=== PATIENT | female | born 1960 | race Caucasian/White ===

== ENCOUNTER 2016-12-15 10:50 | Day surgery (SDC) | payer OTHER ==
[2016-12-13 09:47] VITALS: BMI 35.7
[2016-12-15] MEDS ORDERED: Lactated Ringer's 1,000 ML IV ONE ×2 (14:35→15:21)
[2016-12-15] MEDS ORDERED: Bupivacaine HCl 0.25% PF (10 ml) Inj ONE (14:36)
[2016-12-15] MEDS ORDERED: Lidocaine 1% Inj (20ml) ONE (14:37)
[2016-12-15] MEDS ORDERED: ceFAZolin 1 gm FROZEN Premix 1 GM/50 ML ML IVPB ONE (14:37)
[2016-12-15] MEDS ORDERED: Propofol 10 mg/ml Inj (20 ML) ONE (14:40)
[2016-12-15] MEDS ORDERED: Midazolam 2 MG/2 ML VIAL ONE (14:40)
[2016-12-15] MEDS ORDERED: HYDROmorphone 0.5 mg/0.5 ml ISec IVP PRN (14:51)
[2016-12-15] MEDS ORDERED: Oxycodone/Acetaminophen 5/325 mg Tab PO PRN (15:44)
[2016-12-15 16:50] VITALS: RESP 18; TEMP 98
[2016-12-15 17:50] VITALS: BP 139/72; PULSE 70; O2SAT 100
--- NOTE | 2016-12-16 00:13 | OP ---
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 PROCEDURE: 1. Wide and deep radical resection of 5 cm vascular tumor of the left posterior thigh (30381). 2. Adjacent tissue transfer closure greater than 30 sq cm (06065). SURGEON: Dr. Haddad. TYPE OF ANESTHESIA: Local sedation. ESTIMATED BLOOD LOSS: 40 mL for circulation stable. INDICATIONS FOR SURGERY: This is a 56-year-old female who presents with a painful vascular tumor of the right posterior thigh consistent with the large hemangioma she now undergo wide and deep excision. DESCRIPTION OF PROCEDURE: The patient was taken to the operating room and placed in a prone position and IV sedation was administered and the left posterior thigh was prepped and draped local anesthesia was administered. A generous elliptical incision was made surrounding the fascia and the medial mass. It was carried down to the fascia layer and completely excised, bleeding was controlled using the Bovie. The wound was then irrigated with the saline solution. Generous tissue flaps were raised using a Bovie and wound was widely undermined and an adjacent tissue transverse closure of greater then 30 sq cm was performed using multiple layers of heavy Monocryl, subcuticular Monocryl and skin clips. The wounds were dressed sterilely. The patient tolerated the procedure well and returned to the recovery room in stable condition. Balwinder Haddad MD
== END 2016-12-15 17:56 | disposition home or self-care (01) ==
LOC: C.SDS 10:50
PROVIDERS: ATTEND Surgery
DX: D18.09 Hemangioma of other sites (principal); E11.9 Type 2 diabetes mellitus without complications; I10 Essential (primary) hypertension
CPT/HCPCS: 14301; 27339; 82948; 88305; J2250; J2704; J3010; J7120

== ENCOUNTER 2017-01-04 12:19 | Day surgery (SDC) | payer OTHER ==
[2016-12-13 09:47] VITALS: BMI 35.7
[2017-01-04 13:07] LABS: BASO % 0.6 % (0.0-2.0); EOS # 0.2 K/uL (0.0-0.7); EOS % 3.6 % (0.0-4.0); HEMATOCRIT 42.2 % (34.0-47.0); LYMPH # 1.9 K/uL (1.0-4.3); LYMPH % 29.6 % (20.0-40.0); MEAN CELL VOLUME 79.3 fL (81.0-99.0); MEAN CORPUSCULAR HEMOGLOBIN 25.6 pg (27.0-31.0); MEAN CORPUSCULAR HGB CONC 32.3 g/dL (33.0-37.0); MEAN PLATELET VOLUME 8.1 fL (7.2-11.7); MONO # 0.4 K/uL (0.0-0.8); MONO % 6.8 % (0.0-10.0); NRBC % 0.1 % (0.0-2.0); WHITE BLOOD COUNT 6.3 K/uL (4.8-10.8)
[2017-01-04 13:17] LABS: CHLORIDE 103 mmol/L (98-107); POTASSIUM 3.9 mmol/L (3.6-5.2); SODIUM 146 mmol/L (132-148)
[2017-01-04 13:20] LABS: CARBON DIOXIDE 28 mmol/L (22-30); GFR AFRICAN-AMERICAN > 60
[2017-01-04 13:21] LABS: BLOOD UREA NITROGEN 26 mg/dL (7-17); CALCIUM 9.6 mg/dl (8.6-10.4); GLUCOSE,RANDOM 98 mg/dL (65-105)
[2017-01-04] MEDS ORDERED: Propofol 10 mg/ml Inj (20 ML) ONE (13:25)
[2017-01-04] MEDS ORDERED: Midazolam 2 MG/2 ML VIAL ONE (13:25)
[2017-01-04] MEDS ORDERED: Lactated Ringer's 1,000 ML IV ONE (13:40)
[2017-01-04] MEDS ORDERED: ceFAZolin IV 1 gm in Dextrose 1 GM/50 ML BAG IVPB ONE (13:45)
[2017-01-04] MEDS ORDERED: Oxycodone/Acetaminophen 5/325 mg Tab PO PRN (14:51)
[2017-01-04] MEDS ORDERED: HYDROmorphone 0.5 mg/0.5 ml ISec IVP PRN (15:03)
[2017-01-04] MEDS ORDERED: Lactated Ringer's 500 ML IV ONE (16:00)
[2017-01-04 17:26] VITALS: BP 134/58; PULSE 54; RESP 18; TEMP 97.7; O2SAT 100
--- NOTE | 2017-01-04 20:53 | OP ---
PROCEDURE DATE: 01/04/2017 PREOPERATIVE DIAGNOSES: 1. Fasciotomy to vascular tumor of the left thigh. 2. 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 POSTOPERATIVE DIAGNOSES: 1. Fasciotomy to vascular tumor of the left thigh. 2. 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 PROCEDURE: 1. Wide and deep excision (radical resection) of a vascular tumor of the left thigh greater than 5 cm (67709). 2. Adjacent tissue transfer closure greater than 30 sq cm (57186). 3. Stab phlebectomy of varicose veins of the left thigh greater than 17 incisions ([id number]). SURGEON: Balwinder Haddad MD. TYPE OF ANESTHESIA: General. ESTIMATED BLOOD LOSS: 100 mL. POSTOPERATIVE CONDITION: Stable. INDICATIONS FOR SURGERY: This is a 56-year-old female who presents with a large vascular tumor (hemangioma) measuring greater than 5 cm in the left thigh associated with the phlebitic varicose veins. She will now undergo a wide and deep radical resection of the tumor along with a stab phlebectomy of the phlebitic varicose veins. DESCRIPTION OF PROCEDURE: Patient was taken to the operating room. General anesthesia was administered and the left thigh and leg was prepped and draped. A generous elliptical incision was made surrounding the vascular tumor, which was dissected to the fascial layer and removed. Bleeding was controlled using the Bovie. There was a large tissue defect measuring approximately 40 sq cm and an adjacent tissue transfer closure was performed using multiple layers by firstly widely mobilizing using the Bovie of several layers of tissue and then using multiple layers of heavy Monocryl, subcuticular Monocryl, and glue. Next, the pre-marked phlebitic varicose veins were then excised via the stab phlebectomy, a total of 17 incisions were made. Bleeding was controlled using the Bovie and skin clips. The wounds were all closed with simple closures of 3-0 Monocryl subcuticularly with glue. The wounds were dressed sterilely. An Cesar bandage was wrapped around the left thigh for further compression. The patient tolerated the procedure well, returned to recovery room in stable condition. Balwinder Haddad MD [facility] # [id number]
== END 2017-01-04 18:15 | disposition home or self-care (01) ==
LOC: C.OPSURG 12:19
PROVIDERS: ATTEND Surgery
DX: D18.09 Hemangioma of other sites (principal); I83.892 Varicose veins of left lower extremity with other complications
CPT/HCPCS: 11406; 15572; 36415; 37765; 80048; 85025; 88304; J0690; J2250; J2704; J3010; J7120

== ENCOUNTER 2017-01-17 10:16 | Day surgery (SDC) | payer OTHER ==
[2016-12-13 09:47] VITALS: BMI 35.7
[2017-01-17] MEDS ORDERED: Midazolam 2 MG/2 ML VIAL ONE (12:51)
[2017-01-17] MEDS ORDERED: Propofol 10 mg/ml Inj (20 ML) ONE (12:51)
[2017-01-17] MEDS ORDERED: Lidocaine Hydrochloride 5 ML INJ ONE (13:47)
[2017-01-17] MEDS ORDERED: Bupivacaine HCl 0.25% PF (10 ml) Inj ONE ×4 (14:02→14:49)
[2017-01-17] MEDS ORDERED: ceFAZolin IV 1 gm in Dextrose 0 GM/0 ML BAG IVPB ONE (14:02)
[2017-01-17] MEDS ORDERED: Bupivacaine HCl 0.5% PF (10 ml) Inj ONE (14:03)
[2017-01-17] MEDS ORDERED: Lactated Ringer's 1,000 ML IV ONE (14:04)
[2017-01-17] MEDS: ceFAZolin IV 2 gm in Dextrose 1 GM/50 ML BAG IVPB ONE ×2 (14:16→14:30)
[2017-01-17] MEDS ORDERED: Lidocaine 1% Inj (20ml) ONE (14:25)
[2017-01-17] MEDS ORDERED: Oxycodone/Acetaminophen 5/325 mg Tab PO PRN (15:30)
[2017-01-17] MEDS: HYDROmorphone 0.5 mg/0.5 ml ISec IVP PRN ×2 (15:46→16:09)
[2017-01-17 16:59] VITALS: BP 122/56; PULSE 63; RESP 18; TEMP 97; O2SAT 100
--- NOTE | 2017-01-18 02:27 | OP ---
PROCEDURE DATE: 01/17/2017 PREOPERATIVE DIAGNOSIS: Bilateral pelvic neoplasms. POSTOPERATIVE DIAGNOSIS: Bilateral pelvic neoplasms. PROCEDURES PERFORMED: 1. Wide and deep (radical resection) excision of bilateral pelvic neoplasms measuring 7 cm and 5 cm (69802-57). 2. Adjacent tissue transfer closure of right pelvic wound measuring 32 cm2 ([id number]). 3. Adjacent tissue transfer closure of left pelvic wound measuring 28 cm2 ([id number]). SURGEON: Balwinder Haddad MD TYPE OF ANESTHESIA: General. ESTIMATED BLOOD LOSS: 50 mL. POSTOPERATIVE CONDITION: Stable. INDICATIONS FOR SURGERY: This is a 56-year-old female with bilateral pelvic soft tissue neoplasms who now presents for bilateral wide deep excision. GROSS FINDINGS: There were bilateral pelvic neoplasms noted on the left measuring 7 cm, on the right measuring 5 cm. Both were excised via radical resection, wide and deep excision. Tissue transfer closures were performed bilaterally. DESCRIPTION OF PROCEDURE: The patient was taken to the operating room, general anesthesia was administered and she was placed in the lithotomy position. The stomach was taped cephalad and the pelvic area was prepped and draped. Attention was turned to the right pelvic tumor first. A generous elliptical incision was made surrounding the mass. It was dissected into the pelvic fascia and completely removed. Bleeding was controlled using the Bovie. There was a large tissue defect measuring greater than 32 cm2, so an adjacent tissue transfer closure was mobilized by widely mobilizing and undermining using the Bovie using multiple layers of heavy Monocryl, subcuticular Monocryl and skin clips. On the left, the procedure was repeated utilizing a wide and deep excision of the tumor into the pelvis. A 28 cm2 adjacent tissue transfer closure was performed in the usual fashion. The patient tolerated the procedure well and returned to the recovery room in a stable condition. Balwinder Haddad MD
== END 2017-01-17 17:40 | disposition home or self-care (01) ==
LOC: C.SDS 10:16
PROVIDERS: ATTEND Surgery
DX: D17.79 Benign lipomatous neoplasm of other sites (principal); L98.9 Disorder of the skin and subcutaneous tissue, unspecified
CPT/HCPCS: 11406; 82948; 88307; J0690; J1170; J1885; J2250; J2405; J2704; J3010; J7120

== ENCOUNTER 2017-03-23 12:36 | Day surgery (SDC) | payer MEDICAID ==
[2016-12-13 09:47] VITALS: BMI 35.7
[2017-03-23] MEDS ORDERED: Lactated Ringer's 1,000 ML IV ONE (15:42)
[2017-03-23] MEDS ORDERED: Midazolam 2 MG/2 ML VIAL ONE (15:45)
[2017-03-23] MEDS ORDERED: Propofol 10 mg/ml Inj (20 ML) ONE (15:46)
[2017-03-23] MEDS ORDERED: Rocuronium 10 mg/ml (5 ml) ONE (15:46)
[2017-03-23] MEDS ORDERED: Succinylcholine Chloride 20 mg/ml Syr (5 ml) IV ONE (15:46)
[2017-03-23] MEDS ORDERED: Lidocaine Hydrochloride 5 ML INJ ONE (15:46)
[2017-03-23] MEDS ORDERED: ceFAZolin IV 1 gm in Dextrose 1 GM/50 ML BAG IVPB ONE (16:41)
[2017-03-23] MEDS ORDERED: Oxycodone/Acetaminophen 5/325 mg Tab PO PRN (16:51)
[2017-03-23] MEDS: HYDROmorphone 0.5 mg/0.5 ml ISec IVP PRN ×4 (17:05→17:32)
[2017-03-23 17:37] VITALS: O2SAT 100
[2017-03-23] MEDS ORDERED: HYDROmorphone 0.5 mg/0.5 ml ISec IVP PRN (18:08)
[2017-03-23 18:10] VITALS: BP 109/56; PULSE 73; RESP 20; TEMP 98.5
--- NOTE | 2017-03-25 07:19 | OP ---
PROCEDURE DATE: 03/23/2017 PREOPERATIVE DIAGNOSIS: 5 cm hemangioma of the left leg with varicose veins. POSTOPERATIVE DIAGNOSIS: 5 cm hemangioma of the left leg with varicose veins. PROCEDURES PERFORMED: 1. Wide and deep excision of 5 cm hemangioma of the left leg with adjacent tissue transfer closure. 2. Stab phlebectomy of varicose veins of the left leg. SURGEON: Balwinder Haddad MD ANESTHESIA: General. BLOOD LOSS: 70 mL. POSTOP CONDITION: Stable. INDICATION FOR SURGERY: This is a 56-year-old female with a painful mass of the left leg consistent with hemangioma associated with varicose veins. She now is undergoing wide deep excision of hemangioma along with a stab phlebectomy of varicose veins. DESCRIPTION OF THE PROCEDURE: The patient was taken to the operating room, general anesthesia was administered. She was placed in the prone position and the left leg was prepped and draped. A generous elliptical incision was made surrounding the mass. It was dissected into the fascial layer and removed. Bleeding was controlled using the Bovie. A larger blood vessel was repaired. The wound was irrigated with saline. Generous tissue flaps were raised using the Bovie and adjacent tissue transfer closure was performed using multiple layers of Monocryl, subcuticular Monocryl and glue. Stab phlebectomy was then performed of the remaining varicose veins, totaling 10 incisions. Simple closures were performed with subcuticular Monocryl. The patient tolerated the procedure well and returned to the recovery room in stable condition. Balwinder Haddad MD
== END 2017-03-23 18:45 | disposition home or self-care (01) ==
LOC: C.SDS 12:36
PROVIDERS: ATTEND Surgery
DX: I83.10 Varicose veins of unspecified lower extremity with inflammation (principal)
CPT/HCPCS: 37722; 82948; 88304; J0690; J1170; J2250; J2405; J2704; J3010; J7120

== ENCOUNTER 2017-04-18 11:39 | Day surgery (SDC) | payer MEDICAID ==
[2016-12-13 09:47] VITALS: BMI 35.7
[2017-04-18] MEDS ORDERED: ceFAZolin IV 2 gm in Dextrose 2 GM/50 ML BAG IVPB ONE (14:06)
[2017-04-18] MEDS ORDERED: Lactated Ringer's 1,000 ML IV ONE ×2 (14:15→15:20)
[2017-04-18] MEDS ORDERED: Propofol 10 mg/ml Inj (20 ML) ONE (14:21)
[2017-04-18] MEDS ORDERED: Midazolam 2 MG/2 ML VIAL ONE (14:21)
[2017-04-18] MEDS ORDERED: Phenylephrine 10 mg/ml Inj ONE (15:01)
[2017-04-18] MEDS ORDERED: Lactated Ringer's 1,000 ML IV SCH (16:15)
[2017-04-18] MEDS: HYDROmorphone 0.5 mg/0.5 ml ISec IVP PRN ×2 (16:15→16:42)
[2017-04-18 16:28] VITALS: O2SAT 100
[2017-04-18] MEDS ORDERED: Oxycodone/Acetaminophen 5/325 mg Tab PO PRN (16:28)
[2017-04-18 17:17] VITALS: BP 120/58; PULSE 78; RESP 16; TEMP 97.9
--- NOTE | 2017-04-19 07:50 | OP ---
PROCEDURE DATE: 04/18/2017 PREOPERATIVE DIAGNOSES: Bilateral lower extremity hemangiomas with varicose veins of the left leg. POSTOPERATIVE DIAGNOSES: Bilateral lower extremity hemangiomas with varicose veins of the left leg. PROCEDURE PERFORMED: 1. Wide and deep excisions, bilateral hemangiomas of the legs. 2. Stab phlebectomy of left leg varicose veins, greater than 20 incisions. SURGEON: Balwinder Haddad MD. ANESTHESIA: General. ESTIMATED BLOOD LOSS: 30 mL. HISTORY OF PRESENT ILLNESS: This is a 56-year-old female, status post multiple lower extremity procedures for varicose veins. She presents for her final stage procedure, which includes excision of 2 large hemangiomas of the lower extremities and varicose veins of the left leg. DESCRIPTION OF PROCEDURE: The patient was taken to the operative room. General anesthesia was administered. Both legs were prepped and draped. Attention was first turned to the right leg were a generous elliptical incision was made over a mass in the ankle consistent with hemangioma. It was dissected into the fascia and removed. Bleeding was controlled using the Bovie. A larger blood vessel was repaired. The wound was irrigated with saline. Generous tissue flaps were raised using the Bovie and an adjacent tissue transfer closure was performed using multiple layers of Monocryl, subcuticular Monocryl and glue. The above was repeated on hemangioma of the left leg. The remaining varicose veins of the left leg which had been marked preoperatively were excised via stab phlebectomy. Simple closures with subcuticular Monocryl and glue were performed. The wounds were irrigated and dressed sterilely. The patient tolerated the procedure well. Returned to recovery room in stable condition. Balwinder Haddad MD
== END 2017-04-18 17:56 | disposition home or self-care (01) ==
LOC: C.SDS 11:39
PROVIDERS: ATTEND Surgery
DX: D21.22 Benign neoplasm of connective and other soft tissue of left lower limb, including hip (principal); D21.21 Benign neoplasm of connective and other soft tissue of right lower limb, including hip; I83.893 Varicose veins of bilateral lower extremities with other complications
CPT/HCPCS: 27615; 37766; 82948; 88304; J0690; J1170; J2250; J2370; J2704; J3010; J7120

== ENCOUNTER 2017-05-06 12:27 | Inpatient (IN) | payer MEDICAID ==
[2017-05-06 12:27] VITALS: BMI 35.7
--- NOTE | 2017-05-06 13:42 | C.PDOC ---
History Of Present Illness 56 year old female presents to the emergency department with a non-healing right lower leg wound after she was sent by Dr. Balwinder Haddad MD. Patient underwent extensive lower extremity varicose surgery recently which is not healing well. Denies any further medical complaints. Time Seen by Provider: 05/06/17 13:06 Chief Complaint (Nursing): Abnormal Skin Integrity History Per: Patient History/Exam Limitations: no limitations Past Medical History Reviewed: Historical Data, Nursing Documentation, Vital Signs Vital Signs: Last Vital Signs Temp 97.9 F 05/09/17 16:15 Pulse 68 05/09/17 16:15 Resp 20 05/09/17 16:15 BP 166/88 H 05/09/17 16:15 Pulse Ox 98 05/10/17 00:32 - Medical History PMH: HTN, Hypercholesterolemia Surgical History: Coronary Stent (X1), Endoscopy Other Surgeries: Varicose surgery Family History: States: No Known Family Hx - Social History Hx Alcohol Use: No Hx Substance Use: No - Immunization History Hx Tetanus Toxoid Vaccination: No Hx Influenza Vaccination: No Hx Pneumococcal Vaccination: No Review Of Systems Except As Marked, All Systems Reviewed And Found Negative. (As per HPI, otherwise negative) Musculoskeletal: Positive for: Leg Pain (Right lower leg wound) Physical Exam - Physical Exam Appears: Well, Non-toxic Skin: Normal Color, Warm, Dry Head: Atraumatic, Normacephalic Cardiovascular: Rhythm Regular, No Murmur Respiratory: Normal Breath Sounds, No Decreased Breath Sounds, No Accessory Muscle Use, No Wheezing Gastrointestinal/Abdominal: Normal Exam, Soft, No Tenderness Extremity: Normal ROM (3 cm surgical wound ehiscence over the right lower leg, anterior tibia with surrounding erythema and a few black areas with questionable eschar. ), No Other (No crepitation or gas noted) Neurological/Psych: Oriented x3 ED Course And Treatment - Laboratory Results Result Diagrams: 05/06/17 14:11 05/09/17 07:15 Lab Interpretation: Normal (ua neg, trop neg.) ECG: Interpreted By Me ECG Rhythm: L BBB ECG Interpretation: Normal, No Changes From Prior, Abnormal Rate From EC O2 Sat by Pulse Oximetry: 98 (RA) Pulse Ox Interpretation: Normal - Radiology CXR: Interpreted by Me CXR Interpretation: Yes: No Acute Disease - Other Rad R tib/fib X-Ray: Interpreted by Me (no gas/FB) Progress Note: vanco, toradol IV Reevaluation Time: 14:58 Reassessment Condition: Improved Medical Decision Making Medical Decision Making: distal R lower leg surgical wound Vanco empirically per Dr. Haddad wound without FB/gas/periosteal lifting NPO for elective debridement, wound NOT cultured in ED for fear of growing many unrelated bacteria. Time: 1340 --Chest x-ray IMPRESSION: No active pulmonary disease. Time: 1436 --Tibia/Fibula x-ray IMPRESSION: Findings consistent with cellulitis medial and posterior greater than lateral. No definitive evidence of subcutaneous emphysema. No definitive radiographic evidence of cortical destructive changes at this time however early osteomyelitis cannot be completely excluded and if there is clinical concern for up early osteomyelitis recommend followup MRI. Findings consistent with prior venous harvest procedure although clinical correlation with surgical history recommended. . Time: 1458 --Patient admitted under for surgical wound infection. Disposition Doctor Will See Patient In The: Hospital Counseled Patient/Family Regarding: Studies Performed, Diagnosis - Disposition Disposition: HOSPITALIZED Disposition Time: 14:58 Condition: GOOD - Clinical Impression Clinical Impression: Surgical wound infection - Scribe Statement Nimo Jhonson All medical record entries made by the Scribe were at my direction and personally dictated by me. I have reviewed the chart and agree that the record accurately reflects my personal performance of the history, physical exam, medical decision making, and the department course for this patient. I have also personally directed, reviewed, and agree with the discharge instructions and disposition.
--- NOTE | 2017-05-06 13:52 | RAD ---
PROCEDURE: CHEST RADIOGRAPH, 1 VIEW HISTORY: SOB COMPARISON: None available. FINDINGS: LUNGS: The lungs are well inflated and clear. PLEURA: No pneumothorax or pleural fluid seen. CARDIOVASCULAR: Normal. OSSEOUS STRUCTURES: No significant abnormalities. VISUALIZED UPPER ABDOMEN: Normal. OTHER FINDINGS: None. IMPRESSION: No active pulmonary disease.
[2017-05-06] MEDS: Vancomycin 1 gm/NS 200 ml 1 GM/200 ML BAG IVPB STA ×2 (14:14→14:37)
[2017-05-06 14:21] LABS: BASO % 0.6 % (0.0-2.0); EOS # 0.2 K/uL (0.0-0.7); EOS % 3.1 % (0.0-4.0); HEMOGLOBIN 13.5 g/dL (11.0-16.0); LYMPH # 1.9 K/uL (1.0-4.3); LYMPH % 28.8 % (20.0-40.0); MEAN CELL VOLUME 79.9 fL (81.0-99.0); MEAN CORPUSCULAR HEMOGLOBIN 26.8 pg (27.0-31.0); MEAN CORPUSCULAR HGB CONC 33.6 g/dL (33.0-37.0); MEAN PLATELET VOLUME 8.2 fL (7.2-11.7); MONO # 0.5 K/uL (0.0-0.8); MONO % 7.1 % (0.0-10.0); NEUT % 60.4 % (50.0-75.0); RBC 5.03 Mil/uL (3.80-5.20); RED CELL DISTRIBUTION WIDTH 14.1 % (11.5-14.5); WHITE BLOOD COUNT 6.7 K/uL (4.8-10.8)
[2017-05-06 14:24] LABS: PROTHROMBIN TIME 11.3 SECONDS (9.7-12.2)
[2017-05-06 14:31] LABS: SQUAMOUS EPITHIAL 4 /hpf (0-5); URINE BACTERIA RARE (<OCC); URINE BILIRUBIN NEGATIVE (NEGATIVE); URINE BLOOD NEGATIVE (NEGATIVE); URINE CLARITY Clear (Clear); URINE COLOR Straw (YELLOW); URINE GLUCOSE (UA) 2+ mg/dL (Normal); URINE LEUKOCYTE ESTERASE NEG Leu/uL (Negative); URINE NITRATE NEGATIVE (NEGATIVE); URINE PROTEIN NEGATIVE (NEGATIVE); URINE UROBILINOGEN NORMAL mg/dL (0.2-1.0)
--- NOTE | 2017-05-06 14:38 | RAD ---
PROCEDURE: Right tibia/ fibula dated 05/06/2017 HISTORY: Right anterior tibial wound ; questionable osteomyelitis COMPARISON: No prior study available for comparison TECHNIQUE: Frontal and lateral views obtained. FINDINGS: BONES: Current study reveals no evidence of acute displaced fracture nor dislocation. The osseous structures appear intact. There are no obvious cortical destructive changes seen on this radiograph however the possibility of a mild early osteomyelitis cannot be completely excluded. There are infiltration changes seen within the subcutaneous tissues of the lower aspect of the left lower extremity medially of more significant than laterally consistent with cellulitis. No evidence of subcutaneous emphysema If there is any concern for early osteomyelitis, consider followup MRI. Note also made of metallic vascular clips within the medial soft tissues distally and proximally consistent with prior venous harvest procedure however clinical correlation with surgical history recommended. JOINT SPACES: Mild degenerative changes of the left knee and tibiotalar articulations. OTHER FINDINGS: None. IMPRESSION: Findings consistent with cellulitis medial and posterior greater than lateral. No definitive evidence of subcutaneous emphysema. No definitive radiographic evidence of cortical destructive changes at this time however early osteomyelitis cannot be completely excluded and if there is clinical concern for up early osteomyelitis recommend followup MRI. Findings consistent with prior venous harvest procedure although clinical correlation with surgical history recommended. .
[2017-05-06 14:40] LABS: ALBUMIN 4.5 g/dL (3.5-5.0); ALT/SGPT 31 U/L (9-52); AST/SGOT 27 U/L (14-36); BLOOD UREA NITROGEN 18 mg/dL (7-17); CALCIUM 9.2 mg/dl (8.6-10.4); GFR AFRICAN-AMERICAN > 60; GFR NON-AFRICAN AMERICAN > 60
[2017-05-06 14:43] LABS: ALB/GLOB RATIO 1.2 (1.0-2.1)
[2017-05-06] MEDS ORDERED: Lactated Ringer's 1,000 ML IV ONE ×3 (16:15)
[2017-05-06] MEDS ORDERED: Propofol 10 mg/ml Inj (20 ML) ONE (16:28)
[2017-05-06] MEDS ORDERED: Midazolam 2 MG/2 ML VIAL ONE (16:28)
[2017-05-06] MEDS ORDERED: Lidocaine 1% Inj (20ml) ONE (17:55)
[2017-05-06] MEDS ORDERED: Bupivacaine HCl 0.25% PF (10 ml) Inj ONE (17:55)
[2017-05-06] MEDS: Lactated Ringer's 1,000 ML IV SCH (18:19)
--- NOTE | 2017-05-06 18:43 | CP.PCM.CON ---
History of Present Illness - History of Present Illness History of Present Illness: admitted with infected stasis ulcer right leg 'went to OR for debridement IV antibiotics ordered - Medical History PMH: HTN, Hypercholesterolemia Surgical History: Coronary Stent (X1), Endoscopy Review of Systems - Constitutional Constitutional: As Per HPI - EENT Eyes: absent: As Per HPI, Blind Spots, Blurred Vision, Change in Vision, Decreased Night Vision, Diplopia, Discharge, Dry Eye, Exophthalmos, Floaters, Irritation, Itchy Eyes, Loss of Peripheral Vision, Pain, Photophobia, Requires Corrective Lenses, Sees Flashes, Spots in Vision, Tunnel Vision, Other Visual Disturbances, Loss of Vision, Other Ears: absent: As Per HPI, Decreased Hearing, Ear Discharge, Ear Pain, Tinnitus, Abnormal Hearing, Disequilibrium, Dizziness, Other Nose/Mouth/Throat: absent: As Per HPI, Epistaxis, Nasal Congestion, Nasal Discharge, Nasal Obstruction, Nasal Trauma, Nose Pain, Post Nasal Drip, Sinus Pain, Sinus Pressure, Bleeding Gums, Change in Voice, Dental Pain, Dry Mouth, Dysphagia, Halitosis, Hoarsness, Lip Swelling, Mouth Lesions, Mouth Pain, Odynophagia, Sore Throat, Throat Swelling, Tongue Swelling, Facial Pain, Neck Pain, Neck Mass, Other - Breasts Breasts: absent: As Per HPI, Change in Shape, Mass, Pain, Nipple Discharge, Nipple Inversion, Skin Changes, Swelling, Other - Cardiovascular Cardiovascular: absent: As Per HPI, Acrocyanosis, Chest Pain, Chest Pain at Rest , Chest Pain with Activity, Claudication, Diaphoresis, Dyspnea, Dyspnea on Exertion, Edema, Irregular Heart Rhythm, Pain Radiating to Arm/Neck/Jaw, Leg Edema, Leg Ulcers, Lightheadedness, Orthopnea, Palpitations, Paroxysmal Nocturnal Dyspnea, Pedal Edema, Radiating Pain, Rapid Heart Rate, Slow Heart Rate, Syncope, Other - Respiratory Respiratory: absent: As Per HPI, Cough, Dyspnea, Hemoptysis, Dyspnea on Exertion , Wheezing, Snoring, Stridor, Pain on Inspiration, Chest Congestion, Excessive Mucous Production, Change in Mucous Color, Pain with Coughing, Other - Gastrointestinal Gastrointestinal: absent: As Per HPI, Abdominal Pain, Belching, Bloating, Change in Bowel Habits, Change in Stool Character, Coffee Ground Emesis, Constipation, Cramping, Diarrhea, Dyspepsia, Dysphagia, Early Satiety, Excessive Flatus, Fecal Incontinence, Heartburn, Hematemesis, Hematochezia, Loose Stools, Melena, Nausea, Odynophagia, Temesmus, Vomiting, Other - Genitourinary Genitourinary: absent: As Per HPI, Change in Urinary Stream, Difficulty Urinating, Dysuria, Flank Pain, Hematuria, Pyuria, Nocturia, Urinary Incontinence, Urinary Frequency, Urinary Hesitance, Urinary Urgency, Voiding Freq/Small Amts, Freq UTI, Hx Renal/Bladder Calculi, Hx /Renal Surgery, Bladder Distension, Other - Reproductive: Female Reproductive:Female: absent: As Per HPI, Amenorrhea, Amenorrhea/ Control, Currently Menstual, Cycle <21 Days, Cycle >35 Days, Cycle Variable, Menses 1-7 Days, Menses >/= 8 Days, Menses Variable, Cycle > 4 Weeks Between, No Menses for 6 Months, Heavy Menses, Light Menses, Normal Menses, Spotting Between Cycles , S/P Hysterectomy, Menopausal, Post Menopausal, Premenarche, Abnormal Vaginal Bleeding, Dysmenorrhea, Dyspareunia, Genital Lesions, Genital Pruritis, Pelvic Pain, Prolapse Symptoms, Sexual Dysfunction, Vaginal Discharge, Vaginal Dryness , Vaginal Odor, Vaginal Pruritis, Other - Menstruation Menstruation: absent: As Per HPI, Amenorrhea, Amenorrhea/ Control, Currently Menstual, Cycle <21 Days, Cycle >35 Days, Cycle Variable, Menses 1-7 Days, Menses >/= 8 Days, Menses Variable, Cycle > 4 Weeks Between, No Menses for 6 Months, Heavy Menses, Light Menses, Normal Menses, Spotting Between Cycles , S/P Hysterectomy, Menopausal, Post Menopausal, Premenarche, Abnormal Vaginal Bleeding, Dysmenorrhea, Other - Musculoskeletal Musculoskeletal: As Per HPI - Integumentary Integumentary: As Per HPI, Skin Pain, Wounds - Neurological Neurological: absent: As Per HPI, Abnormal Gait, Abnormal Hearing, Abnormal Movements, Abnormal Speech, Behavioral Changes, Burning Sensations, Confusion, Convulsions, Disequilibrium, Dizziness, Numbness, Focal Weakness, Frequent Falls , Headaches, Lack of Coordination, Loss of Vision, Memory Loss, Paresthesias, Radicular Pain, Restless Legs, Sensory Deficit, Syncope, Tingling, Tremor, Vertigo, Weakness, Other Visual Disturbances, Other - Psychiatric Psychiatric: absent: As Per HPI, Abnormal Sleep Pattern, Anhedonia, Anxiety, Auditory Hallucinations, Behavioral Changes, Change in Appetite, Change in Libido, Confusion, Depression, Difficulty Concentrating, Hallucinations, Homicidal Ideation, Hopelessness, Irritability, Memory Loss, Mood Swings, Panic Attacks, Paranoia, Suicidal Ideation, Visual Hallucinations, Tactile Hallucinations, Other - Endocrine Endocrine: absent: As Per HPI, Change in Body Appearance, Change in Libido, Cold Intolorance, Deepening of Voice, Excessive Sweating, Fatigue, Flushing, Heat Intolorance, Increase in Ring/Shoe/Hat Size, Palpitations, Polydipsia, Polyphagia, Polyuria, Other - Hematologic/Lymphatic Hematologic: absent: As Per HPI, Easy Bleeding, Easy Bruising, Lymphadenopathy, Other Past Patient History - Past Medical History & Family History Past Medical History?: Yes - Past Social History Smoking Status: Never Smoked - CARDIAC Hx Hypercholesterolemia: Yes Hx Hypertension: Yes - ENDOCRINE/METABOLIC Hx Endocrine Disorders: Yes Hx Diabetes Mellitus Type 2: Yes - INTEGUMENTARY Hx Dermatological Problems: Yes Other/Comment: varicose veins - MUSCULOSKELETAL/RHEUMATOLOGICAL Hx Musculoskeletal Disorders: Yes Other/Comment: varicose veins - GASTROINTESTINAL Hx Gastrointestinal Disorders: No - GENITOURINARY/GYNECOLOGICAL Hx Genitourinary Disorders: No - PSYCHIATRIC Hx Substance Use: No - SURGICAL HISTORY Hx Coronary Stent: Yes (X1) - ANESTHESIA Hx Anesthesia Reactions: (Nausea and vomiting) Meds Allergies/Adverse Reactions: Allergies Allergy/AdvReac Type Severity Reaction Status Date / Time No Known Allergies Allergy Verified 05/06/17 13:04 - Medications Medications: Current Medications Aspirin (Ecotrin) 81 mg PO DAILY [facility] Docusate Sodium (Colace) 100 mg PO BID [facility] Enoxaparin Sodium (Lovenox) 30 mg SC 1000,2200 [facility] Glipizide (Glucotrol Xl) 5 mg PO DAILY [facility] Hydrochlorothiazide (Microzide) 12.5 mg PO DAILY [facility] Hydromorphone HCl (Dilaudid) 0.5 mg IVP Q10M PRN PRN Reason: Pain, moderate (4-7) Stop: 05/06/17 19:01 Last Admin: 05/06/17 17:26 Dose: 0.5 mg Lactated Ringer's (Lactated Ringer's) 1,000 mls @ 125 mls/hr IV .Q8H [facility] Last Admin: 05/06/17 18:19 Dose: 125 mls/hr Insulin Aspart (Novolog) 0 unit SC ACHS [facility] PRN Reason: Protocol Losartan Potassium (Cozaar) 100 mg PO DAILY [facility] Ondansetron HCl (Zofran Inj) 4 mg IVP ONCE PRN PRN Reason: Nausea/Vomiting Stop: 05/06/17 19:01 Ondansetron HCl (Zofran Inj) 4 mg IVP Q6 PRN PRN Reason: Nausea/Vomiting Oxycodone/Acetaminophen (Percocet 5/325 Mg Tab) 1 tab PO Q4H PRN PRN Reason: pain 5-10 Stop: 05/09/17 16:57 Pantoprazole Sodium (Protonix Inj) 40 mg IVP DAILY [facility] Rosuvastatin Calcium (Crestor) 5 mg PO HS [facility] Physical Exam - Constitutional Appears: Non-toxic, Chronically Ill - Head Exam Head Exam: NORMOCEPHALIC - Eye Exam Eye Exam: PERRL. absent: Scleral icterus - ENT Exam ENT Exam: Mucous Membranes Dry - Neck Exam Neck exam: Negative for: Lymphadenopathy - Respiratory Exam Respiratory Exam: Decreased Breath Sounds - Cardiovascular Exam Cardiovascular Exam: REGULAR RHYTHM - GI/Abdominal Exam GI & Abdominal Exam: Diminished Bowel Sounds, Soft. absent: Tenderness - Rectal Exam Rectal Exam: Deferred - Exam Exam: NORMAL INSPECTION - Extremities Exam Extremities exam: Positive for: tenderness, pedal pulses present. Negative for : calf tenderness, normal inspection, pedal edema Additional comments: right leg ulcer wrapped s/p OR - Back Exam Back exam: absent: CVA tenderness (L), CVA tenderness (R) - Neurological Exam Neurological exam: Alert, CN II-XII Intact, Oriented x3, Reflexes Normal - Psychiatric Exam Psychiatric exam: Normal Mood - Skin Skin Exam: Dry Results - Vital Signs Recent Vital Signs: Last Vital Signs Temp 97.4 F L 05/06/17 16:55 Pulse 60 05/06/17 17:55 Resp 11 L 05/06/17 17:55 BP 121/47 L 05/06/17 17:55 Pulse Ox 100 05/06/17 17:55 - Labs Result Diagrams: 05/06/17 14:11 05/06/17 14:11 Labs: Laboratory Results - last 24 hr 05/06/17 05/06/1718 14:11 14:11 14:11 WBC 6.7 RBC 5.03 Hgb 13.5 Hct 40.2 MCV 79.9 L MCH 26.8 L MCHC 33.6 RDW 14.1 Plt Count 261 MPV 8.2 Neut % (Auto) 60.4 Lymph % (Auto) 28.8 [place] % (Auto) 7.1 Eos % (Auto) 3.1 Baso % (Auto) 0.6 Neut # 4.0 Lymph # 1.9 [place] # 0.5 Eos # 0.2 Baso # 0.0 PT 11.3 INR 1.0 APTT 35 H Sodium Potassium Chloride Carbon Dioxide Anion Gap BUN Creatinine Est GFR ( Amer) Est GFR (Non-Af Amer) Random Glucose Calcium Total Bilirubin AST ALT Alkaline Phosphatase Troponin I Total Protein Albumin Globulin Albumin/Globulin Ratio Urine Color Straw Urine Clarity Clear Urine pH 5.0 Ur Specific [place] 1.012 Urine Protein Negative Urine Glucose (UA) 2+ H Urine Ketones Negative Urine Blood Negative Urine Nitrate Negative Urine Bilirubin Negative Urine Urobilinogen Normal Ur Leukocyte Esterase Neg Urine WBC (Auto) 2 Urine RBC (Auto) < 1 Ur Squamous Epith Cells 4 Urine Bacteria Rare 05/06/17 14:11 WBC RBC Hgb Hct MCV MCH MCHC RDW Plt Count MPV Neut % (Auto) Lymph % (Auto) [place] % (Auto) Eos % (Auto) Baso % (Auto) Neut # Lymph # [place] # Eos # Baso # PT INR APTT Sodium 139 Potassium 3.8 Chloride 97 L Carbon Dioxide 31 H Anion Gap 15 BUN 18 H Creatinine 0.8 Est GFR ( Amer) > 60 Est GFR (Non-Af Amer) > 60 Random Glucose 112 H Calcium 9.2 Total Bilirubin 0.7 AST 27 ALT 31 Alkaline Phosphatase 117 Troponin I < 0.0120 Total Protein 8.4 H Albumin 4.5 Globulin 3.9 Albumin/Globulin Ratio 1.2 Urine Color Urine Clarity Urine pH Ur Specific [place] Urine Protein Urine Glucose (UA) Urine Ketones Urine Blood Urine Nitrate Urine Bilirubin Urine Urobilinogen Ur Leukocyte Esterase Urine WBC (Auto) Urine RBC (Auto) Ur Squamous Epith Cells Urine Bacteria Assessment & Plan (1) Surgical wound infection Status: Acute - Assessment and Plan (Free Text) Assessment: went to or for debridement IV antibitoics staretd empirically to dicuss with Dr Alvarenga
[2017-05-06] MEDS ORDERED: Piperacillin/Tazobact 3.375 GM in Sodium Chloride 100 ML IVPB SCH (18:45)
[2017-05-06] MEDS: Piperacill/Tazo 3.375gm in Dex 3.375 GM/50 ML BAG IVPB SCH (20:27)
[2017-05-06] MEDS: (Novolog) Insulin Aspart, Recombinant 100 u/ml 10 ml vial SC SCH (21:56)
[2017-05-06] MEDS: Enoxaparin 30 mg Syringe SC SCH (21:59)
[2017-05-06] MEDS: Oxycodone/Acetaminophen 5/325 mg Tab PO PRN (22:02)
--- NOTE | 2017-05-06 22:50 | CP.PCM.HP ---
History of Present Illness - History of Present Illness History of Present Illness: admitted with infected stasis ulcer right leg 'went to OR for debridement IV antibiotics ordered Present on Admission - Present on Admission Any Indicators Present on Admission: Yes Past Patient History - Past Medical History & Family History Past Medical History?: Yes - Past Social History Smoking Status: Never Smoked - CARDIAC Hx Cardiac Disorders: Yes Hx Hypercholesterolemia: Yes Hx Hypertension: Yes - PULMONARY Hx Respiratory Disorders: No - NEUROLOGICAL Hx Neurological Disorder: No - HEENT Hx HEENT Problems: No - RENAL Hx Chronic Kidney Disease: No - ENDOCRINE/METABOLIC Hx Endocrine Disorders: Yes Hx Diabetes Mellitus Type 2: Yes - HEMATOLOGICAL/ONCOLOGICAL Hx Blood Disorders: No - INTEGUMENTARY Hx Dermatological Problems: Yes Other/Comment: varicose veins - MUSCULOSKELETAL/RHEUMATOLOGICAL Hx Musculoskeletal Disorders: Yes Hx Falls: No Other/Comment: varicose veins - GASTROINTESTINAL Hx Gastrointestinal Disorders: No - GENITOURINARY/GYNECOLOGICAL Hx Genitourinary Disorders: No - PSYCHIATRIC Hx Psychophysiologic Disorder: No Hx Substance Use: No - SURGICAL HISTORY Hx Surgeries: Yes Hx Coronary Stent: Yes (X1) Other/Comment: umbilical hernia repair 2006 - ANESTHESIA Hx Anesthesia: Yes Hx Anesthesia Reactions: (Nausea and vomiting) Hx Malignant Hyperthermia: No Meds Allergies/Adverse Reactions: Allergies Allergy/AdvReac Type Severity Reaction Status Date / Time No Known Allergies Allergy Verified 05/06/17 13:04 Results - Vital Signs Recent Vital Signs: Last Vital Signs Temp 97.7 F 05/06/17 18:20 Pulse 66 05/06/17 18:20 Resp 18 05/06/17 21:06 BP 135/76 05/06/17 18:20 Pulse Ox 98 05/06/17 20:20 - Labs Result Diagrams: 05/10/17 11:08 05/10/17 11:08 Labs: Laboratory Results - last 24 hr 05/06/17 05/06/17 05/06/17 14:11 14:11 14:11 WBC 6.7 RBC 5.03 Hgb 13.5 Hct 40.2 MCV 79.9 L MCH 26.8 L MCHC 33.6 RDW 14.1 Plt Count 261 MPV 8.2 Neut % (Auto) 60.4 Lymph % (Auto) 28.8 [place] % (Auto) 7.1 Eos % (Auto) 3.1 Baso % (Auto) 0.6 Neut # 4.0 Lymph # 1.9 [place] # 0.5 Eos # 0.2 Baso # 0.0 PT 11.3 INR 1.0 APTT 35 H Sodium Potassium Chloride Carbon Dioxide Anion Gap BUN Creatinine Est GFR ( Amer) Est GFR (Non-Af Amer) POC Glucose (mg/dL) Random Glucose Calcium Total Bilirubin AST ALT Alkaline Phosphatase Troponin I Total Protein Albumin Globulin Albumin/Globulin Ratio Urine Color Straw Urine Clarity Clear Urine pH 5.0 Ur Specific [place] 1.012 Urine Protein Negative Urine Glucose (UA) 2+ H Urine Ketones Negative Urine Blood Negative Urine Nitrate Negative Urine Bilirubin Negative Urine Urobilinogen Normal Ur Leukocyte Esterase Neg Urine WBC (Auto) 2 Urine RBC (Auto) < 1 Ur Squamous Epith Cells 4 Urine Bacteria Rare 05/06/17 05/06/17 14:11 21:14 WBC RBC Hgb Hct MCV MCH MCHC RDW Plt Count MPV Neut % (Auto) Lymph % (Auto) [place] % (Auto) Eos % (Auto) Baso % (Auto) Neut # Lymph # [place] # Eos # Baso # PT INR APTT Sodium 139 Potassium 3.8 Chloride 97 L Carbon Dioxide 31 H Anion Gap 15 BUN 18 H Creatinine 0.8 Est GFR ( Amer) > 60 Est GFR (Non-Af Amer) > 60 POC Glucose (mg/dL) 155 H Random Glucose 112 H Calcium 9.2 Total Bilirubin 0.7 AST 27 ALT 31 Alkaline Phosphatase 117 Troponin I < 0.0120 Total Protein 8.4 H Albumin 4.5 Globulin 3.9 Albumin/Globulin Ratio 1.2 Urine Color Urine Clarity Urine pH Ur Specific [place] Urine Protein Urine Glucose (UA) Urine Ketones Urine Blood Urine Nitrate Urine Bilirubin Urine Urobilinogen Ur Leukocyte Esterase Urine WBC (Auto) Urine RBC (Auto) Ur Squamous Epith Cells Urine Bacteria
[2017-05-07] MEDS: Lactated Ringer's 1,000 ML IV SCH ×2 (02:00→16:47)
[2017-05-07] MEDS: Vancomycin 1 gm/NS 200 ml 1 GM/200 ML BAG IVPB SCH ×2 (03:24→14:47)
[2017-05-07] MEDS: Oxycodone/Acetaminophen 5/325 mg Tab PO PRN ×2 (03:24→20:57)
[2017-05-07] MEDS: Piperacill/Tazo 3.375gm in Dex 3.375 GM/50 ML BAG IVPB SCH ×3 (04:17→19:43)
[2017-05-07] MEDS: (Novolog) Insulin Aspart, Recombinant 100 u/ml 10 ml vial SC SCH ×4 (07:43→21:57)
[2017-05-07] MEDS: GlipiZIDE 5 mg SR Tab PO SCH (10:09)
[2017-05-07] MEDS: Enoxaparin 30 mg Syringe SC SCH ×2 (11:27→22:00)
--- NOTE | 2017-05-07 22:05 | CP.PCM.PN ---
Subjective - Date & Time of Evaluation Date of Evaluation: 05/07/17 Time of Evaluation: 18:30 - Subjective Subjective: Pt seen and evalauted, pt has no shortness of breath, afebrile on Vanco/zosyn iv rx in progress right lg ulcer / wound inspected no pus at this time Objective - Vital Signs/Intake and Output Vital Signs (last 24 hours): Temp Pulse Resp BP Pulse Ox 97.7 F 66 20 123/74 99 05/07/17 16:17 05/07/17 16:17 05/07/17 16:17 05/07/17 16:17 05/07/17 16:17 Intake and Output: 05/07/17 05/08/17 18:59 06:59 Intake Total 100 200 Balance 100 200 - Medications Medications: Current Medications Aspirin (Ecotrin) 81 mg PO DAILY [facility] Last Admin: 05/07/17 10:09 Dose: 81 mg Docusate Sodium (Colace) 100 mg PO BID [facility] Last Admin: 05/07/17 17:43 Dose: 100 mg Enoxaparin Sodium (Lovenox) 30 mg SC 1000,2200 [facility] Last Admin: 05/07/17 22:00 Dose: 30 mg Glipizide (Glucotrol Xl) 5 mg PO DAILY [facility] Last Admin: 05/07/17 10:09 Dose: 5 mg Hydrochlorothiazide (Microzide) 12.5 mg PO DAILY [facility] Last Admin: 05/07/17 10:09 Dose: 12.5 mg Lactated Ringer's (Lactated Ringer's) 1,000 mls @ 125 mls/hr IV .Q8H [facility] Last Admin: 05/07/17 16:47 Dose: 125 mls/hr Piperacillin Sod/Tazobactam Sod (Zosyn 3.375 Gm Iv Premix) 3.375 gm in 50 mls @ 100 mls/hr IVPB Q8H [facility] Last Admin: 05/07/17 19:43 Dose: 100 mls/hr Vancomycin/Sodium Chloride (Vancomycin 1 Gm/Ns 200 Ml) 1 gm in 200 mls @ 133 mls/hr IVPB Q12H [facility] Stop: 05/12/17 02:31 Last Admin: 05/07/17 14:47 Dose: 133 mls/hr Insulin Aspart (Novolog) 0 unit SC ACHS [facility] PRN Reason: Protocol Last Admin: 05/07/17 21:57 Dose: Not Given Losartan Potassium (Cozaar) 100 mg PO DAILY [facility] Last Admin: 05/07/17 10:09 Dose: 100 mg Ondansetron HCl (Zofran Inj) 4 mg IVP Q6 PRN PRN Reason: Nausea/Vomiting Oxycodone/Acetaminophen (Percocet 5/325 Mg Tab) 1 tab PO Q4H PRN PRN Reason: pain 5-10 Stop: 05/09/17 16:57 Last Admin: 05/07/17 20:57 Dose: 1 tab Pantoprazole Sodium (Protonix Inj) 40 mg IVP DAILY [facility] Last Admin: 05/07/17 10:09 Dose: 40 mg Pneumococcal Polyvalent Vaccine (Pneumovax 23 Vaccine) 0.5 ml IM .ONCE ONE Stop: 05/08/17 10:01 Rosuvastatin Calcium (Crestor) 5 mg PO HS [facility] Last Admin: 05/07/17 22:00 Dose: 5 mg - Labs Labs: 05/06/17 14:11 05/06/17 14:11 PT 11.3 SECONDS (9.7-12.2) 05/06/17 14:11 INR 1.0 05/06/17 14:11 APTT 35 SECONDS (21-34) H 05/06/17 14:11 - Constitutional Appears: No Acute Distress - Head Exam Head Exam: ATRAUMATIC, NORMAL INSPECTION, NORMOCEPHALIC - Eye Exam Eye Exam: EOMI, Normal appearance, PERRL Pupil Exam: NORMAL ACCOMODATION, PERRL - Respiratory Exam Respiratory Exam: Clear to Ausculation Bilateral, NORMAL BREATHING PATTERN - Cardiovascular Exam Cardiovascular Exam: REGULAR RHYTHM, +S1, +S2. absent: Murmur - Extremities Exam Extremities Exam: Pedal Edema Additional comments: right lg ulcer / wound inspected no pus at this time - Neurological Exam Neurological Exam: Alert, Awake, CN II-XII Intact, Normal Gait, Oriented x3 Assessment and Plan (1) Surgical wound infection Assessment & Plan: on Vanco/zosyn iv rx in progress Status: Acute
[2017-05-08] MEDS: Lactated Ringer's 1,000 ML IV SCH ×3 (01:46→17:40)
[2017-05-08] MEDS: Vancomycin 1 gm/NS 200 ml 1 GM/200 ML BAG IVPB SCH ×2 (02:14→13:40)
[2017-05-08] MEDS: Piperacill/Tazo 3.375gm in Dex 3.375 GM/50 ML BAG IVPB SCH ×3 (04:35→19:46)
[2017-05-08] MEDS: (Novolog) Insulin Aspart, Recombinant 100 u/ml 10 ml vial SC SCH ×4 (07:46→21:27)
[2017-05-08] MEDS: Enoxaparin 30 mg Syringe SC SCH ×2 (09:46→21:04)
[2017-05-08] MEDS: GlipiZIDE 5 mg SR Tab PO SCH (09:46)
[2017-05-08] MEDS ORDERED: Influenza Vaccine 60 mcg/0.5 mL SYR (4YR UP) IM ONE (10:00)
[2017-05-08] MEDS ORDERED: Pneumococcal 23-Valent Vaccine IM ONE (10:00)
[2017-05-08] MEDS: Oxycodone/Acetaminophen 5/325 mg Tab PO PRN ×2 (13:13→19:50)
--- NOTE | 2017-05-08 17:23 | CP.PCM.PN ---
Subjective - Date & Time of Evaluation Date of Evaluation: 05/08/17 Time of Evaluation: 08:00 - Subjective Subjective: afebrile on Vanco/zosyn iv rx in progress right lg ulcer / wound inspected no pus at this time Objective - Vital Signs/Intake and Output Vital Signs (last 24 hours): Temp Pulse Resp BP Pulse Ox 97.6 F 62 20 129/74 98 05/08/17 16:33 05/08/17 16:33 05/08/17 16:33 05/08/17 16:33 05/08/17 16:33 Intake and Output: 05/08/17 05/08/17 06:59 18:59 Intake Total 930 1510 Balance 930 1510 - Medications Medications: Current Medications Aspirin (Ecotrin) 81 mg PO DAILY [facility] Last Admin: 05/08/17 09:46 Dose: 81 mg Docusate Sodium (Colace) 100 mg PO BID [facility] Last Admin: 05/08/17 09:46 Dose: 100 mg Enoxaparin Sodium (Lovenox) 30 mg SC 1000,2200 [facility] Last Admin: 05/08/17 09:46 Dose: 30 mg Glipizide (Glucotrol Xl) 5 mg PO DAILY [facility] Last Admin: 05/08/17 09:46 Dose: 5 mg Hydrochlorothiazide (Microzide) 12.5 mg PO DAILY [facility] Last Admin: 05/08/17 09:46 Dose: 12.5 mg Lactated Ringer's (Lactated Ringer's) 1,000 mls @ 125 mls/hr IV .Q8H [facility] Last Admin: 05/08/17 13:42 Dose: 125 mls/hr Piperacillin Sod/Tazobactam Sod (Zosyn 3.375 Gm Iv Premix) 3.375 gm in 50 mls @ 100 mls/hr IVPB Q8H [facility] Last Admin: 05/08/17 12:17 Dose: 100 mls/hr Vancomycin/Sodium Chloride (Vancomycin 1 Gm/Ns 200 Ml) 1 gm in 200 mls @ 133 mls/hr IVPB Q12H [facility] Stop: 05/12/17 02:31 Last Admin: 05/08/17 13:40 Dose: 133 mls/hr Insulin Aspart (Novolog) 0 unit SC ACHS [facility] PRN Reason: Protocol Last Admin: 01/07/18 17:12 Dose: Not Given Losartan Potassium (Cozaar) 100 mg PO DAILY [facility] Last Admin: 05/08/17 09:46 Dose: 100 mg Ondansetron HCl (Zofran Inj) 4 mg IVP Q6 PRN PRN Reason: Nausea/Vomiting Oxycodone/Acetaminophen (Percocet 5/325 Mg Tab) 1 tab PO Q4H PRN PRN Reason: pain 5-10 Stop: 05/09/17 16:57 Last Admin: 05/08/17 13:13 Dose: 1 tab Pantoprazole Sodium (Protonix Inj) 40 mg IVP DAILY [facility] Last Admin: 05/08/17 09:46 Dose: 40 mg Rosuvastatin Calcium (Crestor) 5 mg PO HS [facility] Last Admin: 05/07/17 22:00 Dose: 5 mg - Labs Labs: 05/06/17 14:11 05/06/17 14:11 PT 11.3 SECONDS (9.7-12.2) 05/06/17 14:11 INR 1.0 05/06/17 14:11 APTT 35 SECONDS (21-34) H 05/06/17 14:11 - Constitutional Appears: Non-toxic, Chronically Ill - Head Exam Head Exam: NORMOCEPHALIC - Eye Exam Eye Exam: PERRL - ENT Exam ENT Exam: Mucous Membranes Dry - Neck Exam Neck Exam: absent: Lymphadenopathy - Respiratory Exam Respiratory Exam: Decreased Breath Sounds - Cardiovascular Exam Cardiovascular Exam: REGULAR RHYTHM - GI/Abdominal Exam GI & Abdominal Exam: Distended, Soft - Rectal Exam Rectal Exam: Deferred - Exam Exam: NORMAL INSPECTION - Extremities Exam Extremities Exam: Tenderness. absent: Calf Tenderness, Pedal Edema - Back Exam Back Exam: absent: CVA tenderness (L), CVA tenderness (R) - Neurological Exam Neurological Exam: Alert, Awake, Oriented x3 Assessment and Plan (1) Surgical wound infection Status: Acute
--- NOTE | 2017-05-08 23:07 | CP.PCM.PN ---
Subjective - Date & Time of Evaluation Date of Evaluation: 05/08/17 Time of Evaluation: 16:20 - Subjective Subjective: Pt seen and evalauted, pt has no shortness of breath, afebrile on Vanco/zosyn iv rx in progress, right lg ulcer / wound inspected no pus at this time Objective - Vital Signs/Intake and Output Vital Signs (last 24 hours): Temp Pulse Resp BP Pulse Ox 97.6 F 62 20 129/74 98 05/08/17 16:33 05/08/17 16:33 05/08/17 16:33 05/08/17 16:33 05/08/17 16:33 Intake and Output: 05/08/17 05/09/17 18:59 06:59 Intake Total 1510 1600 Balance 1510 1600 - Medications Medications: Current Medications Aspirin (Ecotrin) 81 mg PO DAILY [facility] Last Admin: 05/08/17 09:46 Dose: 81 mg Docusate Sodium (Colace) 100 mg PO BID [facility] Last Admin: 05/08/17 17:39 Dose: 100 mg Enoxaparin Sodium (Lovenox) 30 mg SC 1000,2200 [facility] Last Admin: 05/08/17 21:04 Dose: 30 mg Glipizide (Glucotrol Xl) 5 mg PO DAILY [facility] Last Admin: 05/08/17 09:46 Dose: 5 mg Hydrochlorothiazide (Microzide) 12.5 mg PO DAILY [facility] Last Admin: 05/08/17 09:46 Dose: 12.5 mg Lactated Ringer's (Lactated Ringer's) 1,000 mls @ 125 mls/hr IV .Q8H [facility] Last Admin: 05/08/17 17:40 Dose: Not Given Piperacillin Sod/Tazobactam Sod (Zosyn 3.375 Gm Iv Premix) 3.375 gm in 50 mls @ 100 mls/hr IVPB Q8H [facility] Last Admin: 05/08/17 19:46 Dose: 100 mls/hr Insulin Aspart (Novolog) 0 unit SC ACHS [facility] PRN Reason: Protocol Last Admin: 05/08/17 21:27 Dose: Not Given Losartan Potassium (Cozaar) 100 mg PO DAILY [facility] Last Admin: 05/08/17 09:46 Dose: 100 mg Ondansetron HCl (Zofran Inj) 4 mg IVP Q6 PRN PRN Reason: Nausea/Vomiting Oxycodone/Acetaminophen (Percocet 5/325 Mg Tab) 1 tab PO Q4H PRN PRN Reason: pain 5-10 Stop: 05/09/17 16:57 Last Admin: 05/08/17 19:50 Dose: 1 tab Pantoprazole Sodium (Protonix Inj) 40 mg IVP DAILY [facility] Last Admin: 05/08/17 09:46 Dose: 40 mg Rosuvastatin Calcium (Crestor) 5 mg PO HS [facility] Last Admin: 05/08/17 21:04 Dose: 5 mg - Labs Labs: 05/06/17 14:11 05/06/17 14:11 PT 11.3 SECONDS (9.7-12.2) 05/06/17 14:11 INR 1.0 05/06/17 14:11 APTT 35 SECONDS (21-34) H 05/06/17 14:11 - Constitutional Appears: No Acute Distress - Head Exam Head Exam: ATRAUMATIC, NORMAL INSPECTION, NORMOCEPHALIC - Eye Exam Eye Exam: EOMI, Normal appearance, PERRL Pupil Exam: NORMAL ACCOMODATION, PERRL - Respiratory Exam Respiratory Exam: Clear to Ausculation Bilateral - Cardiovascular Exam Cardiovascular Exam: REGULAR RHYTHM, +S1, +S2. absent: Murmur - GI/Abdominal Exam GI & Abdominal Exam: Soft, Normal Bowel Sounds. absent: Tenderness - Extremities Exam Additional comments: right lg ulcer / wound inspected no pus at this time - Back Exam Back Exam: paraspinal tenderness - Neurological Exam Neurological Exam: Alert, Awake, CN II-XII Intact, Normal Gait, Oriented x3 Assessment and Plan (1) Surgical wound infection Assessment & Plan: on Vanco/zosyn iv rx in progress Status: Acute
[2017-05-09] MEDS: Lactated Ringer's 1,000 ML IV SCH ×2 (00:24→00:25)
[2017-05-09] MEDS: Piperacill/Tazo 3.375gm in Dex 3.375 GM/50 ML BAG IVPB SCH ×3 (04:55→20:34)
[2017-05-09] MEDS: (Novolog) Insulin Aspart, Recombinant 100 u/ml 10 ml vial SC SCH ×4 (07:30→21:54)
[2017-05-09 08:38] LABS: BLOOD UREA NITROGEN 14 mg/dL (7-17); CALCIUM 8.2 mg/dl (8.6-10.4); GFR AFRICAN-AMERICAN > 60; GFR NON-AFRICAN AMERICAN > 60
[2017-05-09] MEDS: GlipiZIDE 5 mg SR Tab PO SCH (10:38)
[2017-05-09] MEDS: Enoxaparin 30 mg Syringe SC SCH (10:49)
[2017-05-09] MEDS ORDERED: Lactated Ringer's 1,000 ML IV ONE (14:15)
[2017-05-09] MEDS ORDERED: Propofol 10 mg/ml Inj (20 ML) ONE (14:18)
[2017-05-09] MEDS ORDERED: Midazolam 2 MG/2 ML VIAL ONE (14:18)
[2017-05-09] MEDS ORDERED: Lidocaine 1% Inj (20ml) ONE (14:30)
[2017-05-09] MEDS ORDERED: HYDROmorphone 0.5 mg/0.5 ml ISec IVP PRN (14:52)
--- NOTE | 2017-05-09 22:53 | CP.PCM.PN ---
Subjective - Date & Time of Evaluation Date of Evaluation: 05/09/17 Time of Evaluation: 17:00 - Subjective Subjective: Pt seen and examined at bedside Objective - Vital Signs/Intake and Output Vital Signs (last 24 hours): Temp Pulse Resp BP Pulse Ox 97.9 F 68 20 166/88 H 98 05/09/17 16:15 05/09/17 16:15 05/09/17 16:15 05/09/17 16:15 05/09/17 16:15 Intake and Output: 05/09/17 05/10/17 18:59 06:59 Intake Total 1380 Balance 1380 - Medications Medications: Current Medications Aspirin (Ecotrin) 81 mg PO DAILY [facility] Last Admin: 05/09/17 10:49 Dose: Not Given Docusate Sodium (Colace) 100 mg PO BID [facility] Last Admin: 05/09/17 17:43 Dose: 100 mg Enoxaparin Sodium (Lovenox) 30 mg SC 1000,2200 [facility] Last Admin: 05/09/17 10:49 Dose: 30 mg Glipizide (Glucotrol Xl) 5 mg PO DAILY [facility] Last Admin: 05/09/17 10:38 Dose: Not Given Hydrochlorothiazide (Microzide) 12.5 mg PO DAILY [facility] Last Admin: 05/09/17 10:48 Dose: 12.5 mg Piperacillin Sod/Tazobactam Sod (Zosyn 3.375 Gm Iv Premix) 3.375 gm in 50 mls @ 100 mls/hr IVPB Q8H [facility] Last Admin: 05/09/17 20:34 Dose: 100 mls/hr Lactated Ringer's (Lactated Ringer's) 1,000 mls @ 100 mls/hr IV .Q10H [facility] Insulin Aspart (Novolog) 0 unit SC ACHS [facility] PRN Reason: Protocol Last Admin: 05/09/17 21:54 Dose: Not Given Losartan Potassium (Cozaar) 100 mg PO DAILY [facility] Last Admin: 05/09/17 10:49 Dose: 100 mg Ondansetron HCl (Zofran Inj) 4 mg IVP Q6 PRN PRN Reason: Nausea/Vomiting Pantoprazole Sodium (Protonix Inj) 40 mg IVP DAILY [facility] Last Admin: 05/09/17 10:49 Dose: 40 mg Rosuvastatin Calcium (Crestor) 5 mg PO HS [facility] Last Admin: 05/09/17 22:20 Dose: 5 mg - Labs Labs: 05/06/17 14:11 05/09/17 07:15 PT 11.3 SECONDS (9.7-12.2) 05/06/17 14:11 INR 1.0 05/06/17 14:11 APTT 35 SECONDS (21-34) H 05/06/17 14:11 Assessment and Plan (1) Surgical wound infection Status: Acute
[2017-05-10] MEDS: Lactated Ringer's 1,000 ML IV SCH ×2 (02:00→06:07)
--- NOTE | 2017-05-10 02:09 | OP ---
PROCEDURE DATE: 05/09/2017 PREOPERATIVE DIAGNOSES: Abscess and cellulitis with open wound of the right leg. POSTOPERATIVE DIAGNOSES: Abscess and cellulitis with open wound of the right leg. PROCEDURE PERFORMED: Debridement, re-drainage, with partial tissue transfer closure of wound to the right leg. SURGEON: Balwinder Haddad MD. ANESTHESIA: Local sedation. BLOOD LOSS: 20 mL. POSTOPERATIVE CONDITION: Stable. INDICATIONS FOR SURGERY: A 56-year-old female, one who had a wound abscess status post ceasing drainage in the operating room with debridement, but the wound cultures revealed multiple organisms and she was taken back to the OR for debridement, possible closure. GROSS FINDINGS: The wound has granulated, however, it was not amenable to closure, instead a debridement and re-drainage was performed and a partial closure was performed at the periphery. PROCEDURE IN DETAIL: The patient was taken to the operating room. was administered and the right leg was prepped and draped after the previous packing was removed. Local anesthesia was infiltrated. The wound was aggressively debrided. Bleeding was controlled using the Bovie. The large blood vessel was repaired. The wound was pulse irrigated with saline. Partial tissue flap was raised and the closure was performed peripherally. The central portion of wound was packed open with saline gauze. Cultures of remaining collections were taken. The patient tolerated the procedure well, returned to recovery room in stable condition. Balwinder Haddad MD
[2017-05-10] MEDS: Piperacill/Tazo 3.375gm in Dex 3.375 GM/50 ML BAG IVPB SCH ×3 (04:04→20:58)
[2017-05-10] MEDS: (Novolog) Insulin Aspart, Recombinant 100 u/ml 10 ml vial SC SCH ×3 (07:30→21:03)
[2017-05-10] MEDS: GlipiZIDE 5 mg SR Tab PO SCH (10:13)
--- NOTE | 2017-05-10 11:12 | CP.PCM.PN ---
Subjective - Date & Time of Evaluation Date of Evaluation: 05/10/17 Time of Evaluation: 08:00 - Subjective Subjective: swelling /pain persist iv rx in progress Objective - Vital Signs/Intake and Output Vital Signs (last 24 hours): Temp Pulse Resp BP Pulse Ox 97.6 F 66 20 159/83 H 96 05/10/17 08:31 05/10/17 08:31 05/10/17 08:31 05/10/17 08:31 05/10/17 08:31 - Medications Medications: Current Medications Aspirin (Ecotrin) 81 mg PO DAILY [facility] Last Admin: 05/10/17 10:13 Dose: 81 mg Docusate Sodium (Colace) 100 mg PO BID [facility] Last Admin: 05/10/17 10:13 Dose: 100 mg Enoxaparin Sodium (Lovenox) 30 mg SC 1000,2200 [facility] Last Admin: 05/09/17 10:49 Dose: 30 mg Glipizide (Glucotrol Xl) 5 mg PO DAILY [facility] Last Admin: 05/10/17 10:13 Dose: 5 mg Hydrochlorothiazide (Microzide) 12.5 mg PO DAILY [facility] Last Admin: 05/10/17 10:13 Dose: 12.5 mg Piperacillin Sod/Tazobactam Sod (Zosyn 3.375 Gm Iv Premix) 3.375 gm in 50 mls @ 100 mls/hr IVPB Q8H [facility] Last Admin: 05/10/17 04:04 Dose: 100 mls/hr Lactated Ringer's (Lactated Ringer's) 1,000 mls @ 100 mls/hr IV .Q10H [facility] Last Admin: 05/10/17 06:07 Dose: 100 mls/hr Insulin Aspart (Novolog) 0 unit SC ACHS [facility] PRN Reason: Protocol Last Admin: 05/10/17 07:30 Dose: Not Given Losartan Potassium (Cozaar) 100 mg PO DAILY [facility] Last Admin: 05/10/17 10:13 Dose: 100 mg Ondansetron HCl (Zofran Inj) 4 mg IVP Q6 PRN PRN Reason: Nausea/Vomiting Pantoprazole Sodium (Protonix Inj) 40 mg IVP DAILY [facility] Last Admin: 05/10/17 10:21 Dose: Not Given Rosuvastatin Calcium (Crestor) 5 mg PO HS [facility] Last Admin: 05/09/17 22:20 Dose: 5 mg - Labs Labs: 05/06/17 14:11 05/09/17 07:15 PT 11.3 SECONDS (9.7-12.2) 05/06/17 14:11 INR 1.0 05/06/17 14:11 APTT 35 SECONDS (21-34) H 05/06/17 14:11 - Constitutional Appears: Non-toxic, Chronically Ill - Head Exam Head Exam: NORMOCEPHALIC - Eye Exam Eye Exam: absent: Scleral icterus - ENT Exam ENT Exam: Mucous Membranes Dry - Neck Exam Neck Exam: absent: Lymphadenopathy - Respiratory Exam Respiratory Exam: Decreased Breath Sounds - Cardiovascular Exam Cardiovascular Exam: REGULAR RHYTHM - GI/Abdominal Exam GI & Abdominal Exam: Distended Assessment and Plan (1) Surgical wound infection Status: Acute
[2017-05-10 11:17] LABS: BASO % 0.8 % (0.0-2.0); EOS # 0.2 K/uL (0.0-0.7); EOS % 4.3 % (0.0-4.0); LYMPH # 0.9 K/uL (1.0-4.3); LYMPH % 20.2 % (20.0-40.0); MEAN CELL VOLUME 80.8 fL (81.0-99.0); MEAN CORPUSCULAR HEMOGLOBIN 26.1 pg (27.0-31.0); MEAN CORPUSCULAR HGB CONC 32.3 g/dL (33.0-37.0); MEAN PLATELET VOLUME 8.4 fL (7.2-11.7); MONO # 0.2 K/uL (0.0-0.8); MONO % 4.9 % (0.0-10.0); NEUT % 69.8 % (50.0-75.0); RBC 4.6 Mil/uL (3.80-5.20); RED CELL DISTRIBUTION WIDTH 14.1 % (11.5-14.5); WHITE BLOOD COUNT 4.4 K/uL (4.8-10.8)
[2017-05-10 11:48] LABS: ALB/GLOB RATIO 1.2 (1.0-2.1); ALBUMIN 3.7 g/dL (3.5-5.0); ALT/SGPT 104 U/L (9-52); AST/SGOT 117 U/L (14-36); BLOOD UREA NITROGEN 11 mg/dL (7-17); CALCIUM 8.4 mg/dl (8.6-10.4); GFR AFRICAN-AMERICAN > 60; GFR NON-AFRICAN AMERICAN > 60
--- NOTE | 2017-05-10 21:19 | CP.PCM.PN ---
Subjective - Date & Time of Evaluation Date of Evaluation: 05/10/17 Time of Evaluation: 18:00 - Subjective Subjective: Pt seen and examined, swelling /pain persist iv rx in progress Objective - Vital Signs/Intake and Output Vital Signs (last 24 hours): Temp Pulse Resp BP Pulse Ox 98.9 F 70 20 152/81 H 97 05/10/17 15:25 05/10/17 15:25 05/10/17 15:25 05/10/17 15:25 05/10/17 15:25 Intake and Output: 05/10/17 05/11/17 18:59 06:59 Intake Total 530 Balance 530 - Medications Medications: Current Medications Aspirin (Ecotrin) 81 mg PO DAILY [facility] Last Admin: 05/10/17 10:13 Dose: 81 mg Docusate Sodium (Colace) 100 mg PO BID [facility] Last Admin: 05/10/17 17:24 Dose: Not Given Enoxaparin Sodium (Lovenox) 30 mg SC 1000,2200 [facility] Last Admin: 05/09/17 10:49 Dose: 30 mg Glipizide (Glucotrol Xl) 5 mg PO DAILY [facility] Last Admin: 05/10/17 10:13 Dose: 5 mg Hydrochlorothiazide (Microzide) 12.5 mg PO DAILY [facility] Last Admin: 05/10/17 10:13 Dose: 12.5 mg Piperacillin Sod/Tazobactam Sod (Zosyn 3.375 Gm Iv Premix) 3.375 gm in 50 mls @ 100 mls/hr IVPB Q8H [facility] Last Admin: 05/10/17 20:58 Dose: 100 mls/hr Lactated Ringer's (Lactated Ringer's) 1,000 mls @ 100 mls/hr IV .Q10H [facility] Last Admin: 05/10/17 06:07 Dose: 100 mls/hr Insulin Aspart (Novolog) 0 unit SC ACHS [facility] PRN Reason: Protocol Last Admin: 05/10/17 21:03 Dose: Not Given Losartan Potassium (Cozaar) 100 mg PO DAILY [facility] Last Admin: 05/10/17 10:13 Dose: 100 mg Ondansetron HCl (Zofran Inj) 4 mg IVP Q6 PRN PRN Reason: Nausea/Vomiting Pantoprazole Sodium (Protonix Inj) 40 mg IVP DAILY [facility] Last Admin: 05/10/17 10:21 Dose: Not Given Rosuvastatin Calcium (Crestor) 5 mg PO HS [facility] Last Admin: 05/10/17 21:02 Dose: 5 mg - Labs Labs: 05/10/17 11:08 05/10/17 11:08 PT 11.3 SECONDS (9.7-12.2) 05/06/17 14:11 INR 1.0 05/06/17 14:11 APTT 35 SECONDS (21-34) H 05/06/17 14:11 Assessment and Plan (1) Surgical wound infection Status: Acute
[2017-05-11] MEDS: Piperacill/Tazo 3.375gm in Dex 3.375 GM/50 ML BAG IVPB SCH (04:50)
[2017-05-11] MEDS: Lactated Ringer's 1,000 ML IV SCH ×2 (08:30→17:53)
[2017-05-11] MEDS: (Novolog) Insulin Aspart, Recombinant 100 u/ml 10 ml vial SC SCH ×4 (08:31→21:24)
[2017-05-11] MEDS: GlipiZIDE 5 mg SR Tab PO SCH (10:02)
[2017-05-11] MEDS ORDERED: Propofol 10 mg/ml Inj (20 ML) ONE (12:55)
[2017-05-11] MEDS ORDERED: Midazolam 2 MG/2 ML VIAL ONE (12:55)
[2017-05-11] MEDS ORDERED: Lidocaine Hydrochloride 5 ML INJ ONE (12:56)
[2017-05-11] MEDS ORDERED: Lactated Ringer's 1,000 ML IV ONE (13:00)
[2017-05-11] MEDS ORDERED: Lidocaine 1% Inj (20ml) ONE (13:07)
[2017-05-11] MEDS ORDERED: Bupivacaine HCl 0.25% PF (10 ml) Inj ONE (13:07)
--- NOTE | 2017-05-11 16:13 | CARD ---
APPROVED REPORT EKG Measurement Heart [id number] <Conclusion> Normal sinus rhythm Left bundle branch block Abnormal ECG
--- NOTE | 2017-05-11 16:36 | CP.PCM.PN ---
Subjective - Date & Time of Evaluation Date of Evaluation: 05/11/17 Time of Evaluation: 08:00 - Subjective Subjective: culture pos for MDRO's IV rx adjusted may need JAMSHID for 10-14 days Objective - Vital Signs/Intake and Output Vital Signs (last 24 hours): Temp Pulse Resp BP Pulse Ox 97.2 F L 58 L 20 155/73 H 98 05/11/17 15:32 05/11/17 15:32 05/11/17 15:32 05/11/17 15:32 05/11/17 15:32 - Medications Medications: Current Medications Aspirin (Ecotrin) 81 mg PO DAILY [facility] Last Admin: 05/11/17 10:02 Dose: Not Given Docusate Sodium (Colace) 100 mg PO BID [facility] Last Admin: 05/11/17 10:02 Dose: Not Given Enoxaparin Sodium (Lovenox) 30 mg SC 1000,2200 [facility] Last Admin: 05/09/17 10:49 Dose: 30 mg Glipizide (Glucotrol Xl) 5 mg PO DAILY [facility] Last Admin: 05/11/17 10:02 Dose: Not Given Hydrochlorothiazide (Microzide) 12.5 mg PO DAILY [facility] Last Admin: 05/11/17 10:02 Dose: Not Given Lactated Ringer's (Lactated Ringer's) 1,000 mls @ 100 mls/hr IV .Q10H [facility] Last Admin: 05/11/17 08:30 Dose: Not Given Cefepime HCl 1 gm/ Dextrose 50 mls @ 100 mls/hr IVPB Q12H [facility] Last Admin: 05/11/17 13:15 Dose: 50 mls Vancomycin HCl 1,000 mg/ (Sodium Chloride) 200 mls @ 133.333 mls/hr IVPB Q12H [facility] Insulin Aspart (Novolog) 0 unit SC ACHS [facility] PRN Reason: Protocol Last Admin: 05/11/17 16:34 Dose: Not Given Losartan Potassium (Cozaar) 100 mg PO DAILY [facility] Last Admin: 05/11/17 09:56 Dose: 100 mg Ondansetron HCl (Zofran Inj) 4 mg IVP Q6 PRN PRN Reason: Nausea/Vomiting Pantoprazole Sodium (Protonix Inj) 40 mg IVP DAILY [facility] Last Admin: 05/11/17 09:58 Dose: 40 mg Rosuvastatin Calcium (Crestor) 5 mg PO HS [facility] Last Admin: 05/10/17 21:02 Dose: 5 mg - Labs Labs: 05/10/17 11:08 05/10/17 11:08 PT 11.3 SECONDS (9.7-12.2) 05/06/17 14:11 INR 1.0 05/06/17 14:11 APTT 35 SECONDS (21-34) H 05/06/17 14:11 - Constitutional Appears: Non-toxic, Chronically Ill - Head Exam Head Exam: NORMOCEPHALIC - Eye Exam Eye Exam: PERRL - ENT Exam ENT Exam: Mucous Membranes Dry - Neck Exam Neck Exam: absent: Lymphadenopathy - Respiratory Exam Respiratory Exam: Decreased Breath Sounds - Cardiovascular Exam Cardiovascular Exam: REGULAR RHYTHM - GI/Abdominal Exam GI & Abdominal Exam: Distended, Soft - Rectal Exam Rectal Exam: Deferred - Exam Exam: NORMAL INSPECTION - Extremities Exam Extremities Exam: Pedal Edema. absent: Calf Tenderness, Tenderness - Back Exam Back Exam: absent: CVA tenderness (L), CVA tenderness (R) - Neurological Exam Neurological Exam: Alert, Awake, Oriented x3 Assessment and Plan (1) Surgical wound infection Status: Acute
--- NOTE | 2017-05-11 22:38 | OP ---
PROCEDURE DATE: 05/11/2017 PREOPERATIVE DIAGNOSIS: Abscess and ulcer of the right leg. POSTOPERATIVE DIAGNOSIS: Abscess and ulcer of the right leg. PROCEDURE PERFORMED: Re-drainage, debridement, re-culturing of abscess and ulcer of the right leg. SURGEON: Balwinder Haddad MD. ANESTHESIA: General. ESTIMATED BLOOD LOSS: 30 mL. POSTOPERATIVE CONDITION: Stable. INDICATIONS FOR SURGERY: This is a 56-year-old female status post wound infection and abscess of the right leg. Recent culture grew out multiple organisms including E. coli MRSA and Enterococcus faecalis. The patient has been placed on multiple antibiotics, taken back to the OR today for re-debridement, drainage, and possible placement of a Dermagraft. FINDINGS: There was less healing in the wound than it had been hoped for including the placement of a Dermagraft. The wound was re-debrided and drained in hopes of healing to the point where one can be placed within a few days of procedure. DESCRIPTION OF PROCEDURE: Patient was taken to the operating room. IV sedation was administered and the right leg was prepped and draped. Local anesthesia was administered and the wound was aggressively debrided. Bleeding was controlled using a Bovie. Exposed blood vessel was repaired. Pulse irrigated. Any remaining collections were drained and cultured. Partial tissue flap closure was performed. The central portion was packed open with saline gauze. Patient tolerated the procedure well and returned to recovery room in stable condition. Balwinder Haddad MD
[2017-05-12] MEDS: Lactated Ringer's 1,000 ML IV SCH ×2 (02:16→13:15)
[2017-05-12] MEDS: (Novolog) Insulin Aspart, Recombinant 100 u/ml 10 ml vial SC SCH ×5 (07:51→21:44)
[2017-05-12] MEDS: GlipiZIDE 5 mg SR Tab PO SCH (10:27)
--- NOTE | 2017-05-12 18:39 | CP.PCM.PN ---
Subjective - Date & Time of Evaluation Date of Evaluation: 05/12/17 Time of Evaluation: 09:00 - Subjective Subjective: culture pos for MDRO's on new drug regimen wound care in progress Objective - Vital Signs/Intake and Output Vital Signs (last 24 hours): Temp Pulse Resp BP Pulse Ox 97.3 F L 70 20 137/71 97 05/12/17 15:00 05/12/17 15:00 05/12/17 15:00 05/12/17 15:00 05/12/17 15:00 Intake and Output: 05/12/17 05/12/17 06:59 18:59 Intake Total 800 450 Output Total 800 Balance 800 -350 - Medications Medications: Current Medications Amlodipine Besylate (Norvasc) 5 mg PO DAILY [facility] Last Admin: 05/12/17 12:42 Dose: 5 mg Aspirin (Ecotrin) 81 mg PO DAILY [facility] Last Admin: 05/12/17 10:26 Dose: 81 mg Docusate Sodium (Colace) 100 mg PO BID [facility] Last Admin: 05/12/17 17:46 Dose: 100 mg Enoxaparin Sodium (Lovenox) 30 mg SC 1000,2200 [facility] Last Admin: 05/09/17 10:49 Dose: 30 mg Hydrochlorothiazide (Microzide) 12.5 mg PO DAILY [facility] Last Admin: 05/12/17 10:27 Dose: 12.5 mg Cefepime HCl 1 gm/ Dextrose 50 mls @ 100 mls/hr IVPB Q12H [facility] Last Admin: 05/12/17 14:06 Dose: 100 mls/hr Vancomycin HCl 1,000 mg/ (Sodium Chloride) 200 mls @ 133.333 mls/hr IVPB Q12H [facility] Last Admin: 05/12/17 17:46 Dose: 133.333 mls/hr Insulin Aspart (Novolog) 0 unit SC ACHS [facility] PRN Reason: Protocol Last Admin: 05/12/17 17:41 Dose: Not Given Losartan Potassium (Cozaar) 100 mg PO DAILY [facility] Last Admin: 05/12/17 10:26 Dose: 100 mg Metformin HCl (Glucophage) 500 mg PO BIDCC [facility] Last Admin: 05/12/17 17:46 Dose: 500 mg Ondansetron HCl (Zofran Inj) 4 mg IVP Q6 PRN PRN Reason: Nausea/Vomiting Pantoprazole Sodium (Protonix Inj) 40 mg IVP DAILY [facility] Last Admin: 05/12/17 10:24 Dose: 40 mg Rosuvastatin Calcium (Crestor) 5 mg PO HS [facility] Last Admin: 05/11/17 21:21 Dose: 5 mg - Labs Labs: 05/10/17 11:08 05/10/17 11:08 PT 11.3 SECONDS (9.7-12.2) 05/06/17 14:11 INR 1.0 05/06/17 14:11 APTT 35 SECONDS (21-34) H 05/06/17 14:11 - Constitutional Appears: Non-toxic, Chronically Ill - Head Exam Head Exam: NORMOCEPHALIC - Eye Exam Eye Exam: PERRL - ENT Exam ENT Exam: Mucous Membranes Dry - Neck Exam Neck Exam: absent: Lymphadenopathy - Respiratory Exam Respiratory Exam: Decreased Breath Sounds - Cardiovascular Exam Cardiovascular Exam: REGULAR RHYTHM - GI/Abdominal Exam GI & Abdominal Exam: Distended, Soft Assessment and Plan (1) Surgical wound infection Status: Acute
--- NOTE | 2017-05-12 23:26 | CP.PCM.PN ---
Subjective - Date & Time of Evaluation Date of Evaluation: 05/11/17 Time of Evaluation: 18:30 - Subjective Subjective: Pt seen and examined, culture pos for MDRO's IV rx adjusted may need JAMSHID for 10-14 days Objective - Vital Signs/Intake and Output Vital Signs (last 24 hours): Temp Pulse Resp BP Pulse Ox 97.3 F L 70 20 137/71 97 05/12/17 15:00 05/12/17 15:00 05/12/17 15:00 05/12/17 15:00 05/12/17 15:00 Intake and Output: 05/12/17 05/13/17 18:59 06:59 Intake Total 450 1800 Output Total 800 Balance -350 1800 - Medications Medications: Current Medications Amlodipine Besylate (Norvasc) 5 mg PO DAILY [facility] Last Admin: 05/12/17 12:42 Dose: 5 mg Aspirin (Ecotrin) 81 mg PO DAILY [facility] Last Admin: 05/12/17 10:26 Dose: 81 mg Docusate Sodium (Colace) 100 mg PO BID [facility] Last Admin: 05/12/17 17:46 Dose: 100 mg Enoxaparin Sodium (Lovenox) 30 mg SC 1000,2200 [facility] Last Admin: 05/09/17 10:49 Dose: 30 mg Hydrochlorothiazide (Microzide) 12.5 mg PO DAILY [facility] Last Admin: 05/12/17 10:27 Dose: 12.5 mg Cefepime HCl 1 gm/ Dextrose 50 mls @ 100 mls/hr IVPB Q12H [facility] Last Admin: 05/12/17 14:06 Dose: 100 mls/hr Vancomycin HCl 1,000 mg/ (Sodium Chloride) 200 mls @ 133.333 mls/hr IVPB Q12H [facility] Last Admin: 05/12/17 17:46 Dose: 133.333 mls/hr Insulin Aspart (Novolog) 0 unit SC ACHS [facility] PRN Reason: Protocol Last Admin: 05/12/17 21:44 Dose: Not Given Losartan Potassium (Cozaar) 100 mg PO DAILY [facility] Last Admin: 05/12/17 10:26 Dose: 100 mg Metformin HCl (Glucophage) 500 mg PO BIDCC [facility] Last Admin: 05/12/17 17:46 Dose: 500 mg Ondansetron HCl (Zofran Inj) 4 mg IVP Q6 PRN PRN Reason: Nausea/Vomiting Pantoprazole Sodium (Protonix Inj) 40 mg IVP DAILY [facility] Last Admin: 05/12/17 10:24 Dose: 40 mg Rosuvastatin Calcium (Crestor) 5 mg PO HS [facility] Last Admin: 05/12/17 21:44 Dose: 5 mg - Labs Labs: 05/10/17 11:08 05/10/17 11:08 PT 11.3 SECONDS (9.7-12.2) 05/06/17 14:11 INR 1.0 05/06/17 14:11 APTT 35 SECONDS (21-34) H 05/06/17 14:11 Assessment and Plan (1) Surgical wound infection Status: Acute
--- NOTE | 2017-05-12 23:27 | CP.PCM.PN ---
Subjective - Date & Time of Evaluation Date of Evaluation: 05/12/17 Time of Evaluation: 18:00 - Subjective Subjective: Pt seen and examined, she has multiple germs in right leg wound, no nausea, vomitting, headache, dizziness culture pos for MDRO's on new drug regimen wound care in progress pt is onantibiotics, her B.P was high, i adjusted her medications Objective - Vital Signs/Intake and Output Vital Signs (last 24 hours): Temp Pulse Resp BP Pulse Ox 97.3 F L 70 20 137/71 97 05/12/17 15:00 05/12/17 15:00 05/12/17 15:00 05/12/17 15:00 05/12/17 15:00 Intake and Output: 05/12/17 05/13/17 18:59 06:59 Intake Total 450 1800 Output Total 800 Balance -350 1800 - Medications Medications: Current Medications Amlodipine Besylate (Norvasc) 5 mg PO DAILY [facility] Last Admin: 05/12/17 12:42 Dose: 5 mg Aspirin (Ecotrin) 81 mg PO DAILY [facility] Last Admin: 05/12/17 10:26 Dose: 81 mg Docusate Sodium (Colace) 100 mg PO BID [facility] Last Admin: 05/12/17 17:46 Dose: 100 mg Enoxaparin Sodium (Lovenox) 30 mg SC 1000,2200 [facility] Last Admin: 05/09/17 10:49 Dose: 30 mg Hydrochlorothiazide (Microzide) 12.5 mg PO DAILY [facility] Last Admin: 05/12/17 10:27 Dose: 12.5 mg Cefepime HCl 1 gm/ Dextrose 50 mls @ 100 mls/hr IVPB Q12H [facility] Last Admin: 05/12/17 14:06 Dose: 100 mls/hr Vancomycin HCl 1,000 mg/ (Sodium Chloride) 200 mls @ 133.333 mls/hr IVPB Q12H [facility] Last Admin: 05/12/17 17:46 Dose: 133.333 mls/hr Insulin Aspart (Novolog) 0 unit SC ACHS [facility] PRN Reason: Protocol Last Admin: 05/12/17 21:44 Dose: Not Given Losartan Potassium (Cozaar) 100 mg PO DAILY [facility] Last Admin: 05/12/17 10:26 Dose: 100 mg [facility] Last Admin: 05/12/17 17:46 Dose: 500 mg Ondansetron HCl (Zofran Inj) 4 mg IVP Q6 PRN PRN Reason: Nausea/Vomiting Pantoprazole Sodium (Protonix Inj) 40 mg IVP DAILY [facility] Last Admin: 05/12/17 10:24 Dose: 40 mg Rosuvastatin Calcium (Crestor) 5 mg PO HS [facility] Last Admin: 05/12/17 21:44 Dose: 5 mg - Labs Labs: 05/10/17 11:08 05/10/17 11:08 PT 11.3 SECONDS (9.7-12.2) 05/06/17 14:11 INR 1.0 05/06/17 14:11 APTT 35 SECONDS (21-34) H 05/06/17 14:11 - Constitutional Appears: No Acute Distress - Head Exam Head Exam: ATRAUMATIC, NORMAL INSPECTION, NORMOCEPHALIC - Eye Exam Eye Exam: EOMI, Normal appearance, PERRL Pupil Exam: NORMAL ACCOMODATION, PERRL - Respiratory Exam Respiratory Exam: Clear to Ausculation Bilateral, NORMAL BREATHING PATTERN - Cardiovascular Exam Cardiovascular Exam: REGULAR RHYTHM, +S1, +S2. absent: Murmur - GI/Abdominal Exam GI & Abdominal Exam: Soft, Normal Bowel Sounds. absent: Tenderness - Extremities Exam Extremities Exam: Tenderness - Neurological Exam Neurological Exam: Alert, Awake, CN II-XII Intact, Normal Gait, Oriented x3 - Skin Skin Exam: Erythema Assessment and Plan (1) Surgical wound infection Status: Acute
[2017-05-13] MEDS: Lactated Ringer's 1,000 ML IV SCH (01:35)
[2017-05-13] MEDS: (Novolog) Insulin Aspart, Recombinant 100 u/ml 10 ml vial SC SCH ×3 (07:58→21:03)
[2017-05-13] MEDS ORDERED: Midazolam 2 MG/2 ML VIAL ONE (14:56)
[2017-05-13] MEDS ORDERED: Propofol 10 mg/ml Inj (20 ML) ONE (14:56)
[2017-05-13] MEDS ORDERED: Lactated Ringer's 1,000 ML IV ONE (15:55)
[2017-05-13] MEDS ORDERED: Lidocaine 1% Inj (20ml) ONE (16:18)
--- NOTE | 2017-05-13 19:20 | CP.PCM.PN ---
Subjective - Date & Time of Evaluation Date of Evaluation: 05/13/17 Time of Evaluation: 10:00 - Subjective Subjective: wounds still + for MDRO vanco levels ok iv rx reordered cont wound care Objective - Vital Signs/Intake and Output Vital Signs (last 24 hours): Temp Pulse Resp BP Pulse Ox 97.4 F L 67 18 170/89 H 94 L 05/13/17 17:53 05/13/17 17:53 05/13/17 17:53 05/13/17 17:53 05/13/17 17:53 Intake and Output: 05/13/17 05/14/17 18:59 06:59 Intake Total 200 Balance 200 - Medications Medications: Current Medications Amlodipine Besylate (Norvasc) 10 mg PO DAILY [facility] Aspirin (Ecotrin) 81 mg PO DAILY [facility] Last Admin: 05/13/17 11:24 Dose: Not Given Docusate Sodium (Colace) 100 mg PO BID [facility] Last Admin: 05/13/17 17:44 Dose: Not Given Enoxaparin Sodium (Lovenox) 30 mg SC 1000,2200 [facility] Last Admin: 05/09/17 10:49 Dose: 30 mg Hydrochlorothiazide (Microzide) 12.5 mg PO DAILY [facility] Last Admin: 05/13/17 11:24 Dose: Not Given Cefepime HCl 1 gm/ Dextrose 50 mls @ 100 mls/hr IVPB Q12H [facility] Last Admin: 05/13/17 14:04 Dose: 100 mls/hr Vancomycin HCl 1,000 mg/ (Sodium Chloride) 200 mls @ 133.333 mls/hr IVPB Q12H [facility] Last Admin: 05/13/17 17:53 Dose: 133.333 mls/hr Insulin Aspart (Novolog) 0 unit SC ACHS [facility] PRN Reason: Protocol Last Admin: 05/13/17 17:58 Dose: Not Given Losartan Potassium (Cozaar) 100 mg PO DAILY [facility] Last Admin: 05/13/17 18:43 Dose: 100 mg [facility]uc[facility]) [facility] Last Admin: 05/13/17 17:44 Dose: Not Given Ondansetron HCl (Zofran Inj) 4 mg IVP Q6 PRN PRN Reason: Nausea/Vomiting Pantoprazole Sodium (Protonix Inj) 40 mg IVP DAILY [facility] Last Admin: 05/13/17 11:24 Dose: Not Given Rosuvastatin Calcium (Crestor) 5 mg PO HS [facility] Last Admin: 05/12/17 21:44 Dose: 5 mg - Labs Labs: 05/10/17 11:08 05/10/17 11:08 PT 11.3 SECONDS (9.7-12.2) 05/06/17 14:11 INR 1.0 05/06/17 14:11 APTT 35 SECONDS (21-34) H 05/06/17 14:11 - Constitutional Appears: Non-toxic, Chronically Ill - Head Exam Head Exam: NORMOCEPHALIC - Eye Exam Eye Exam: PERRL - ENT Exam ENT Exam: Mucous Membranes Dry - Neck Exam Neck Exam: absent: Lymphadenopathy - Respiratory Exam Respiratory Exam: Decreased Breath Sounds - Cardiovascular Exam Cardiovascular Exam: Clicks Assessment and Plan (1) Surgical wound infection Status: Acute
--- NOTE | 2017-05-13 23:25 | CP.PCM.PN ---
Subjective - Date & Time of Evaluation Date of Evaluation: 05/13/17 Time of Evaluation: 18:15 - Subjective Subjective: Pt is feeling better, is for discharge tommorow, she is s/p OR today wounds still + for MDRO, vanco levels ok iv rx reordered cont wound care Objective - Vital Signs/Intake and Output Vital Signs (last 24 hours): Temp Pulse Resp BP Pulse Ox 97.4 F L 67 18 170/89 H 94 L 05/13/17 17:53 05/13/17 17:53 05/13/17 17:53 05/13/17 17:53 05/13/17 17:53 Intake and Output: 05/13/17 05/14/17 18:59 06:59 Intake Total 200 Balance 200 - Medications Medications: Current Medications Amlodipine Besylate (Norvasc) 10 mg PO DAILY [facility] Aspirin (Ecotrin) 81 mg PO DAILY [facility] Last Admin: 05/13/17 11:24 Dose: Not Given Docusate Sodium (Colace) 100 mg PO BID [facility] Last Admin: 05/13/17 17:44 Dose: Not Given Enoxaparin Sodium (Lovenox) 30 mg SC 1000,2200 [facility] Last Admin: 05/09/17 10:49 Dose: 30 mg Hydrochlorothiazide (Microzide) 12.5 mg PO DAILY [facility] Last Admin: 05/13/17 11:24 Dose: Not Given Cefepime HCl 1 gm/ Dextrose 50 mls @ 100 mls/hr IVPB Q12H [facility] Last Admin: 05/13/17 14:04 Dose: 100 mls/hr Vancomycin HCl 1,000 mg/ (Sodium Chloride) 200 mls @ 133.333 mls/hr IVPB Q12H [facility] Last Admin: 05/13/17 17:53 Dose: 133.333 mls/hr Insulin Aspart (Novolog) 0 unit SC ACHS [facility] PRN Reason: Protocol Last Admin: 05/13/17 21:03 Dose: Not Given Losartan Potassium (Cozaar) 100 mg PO DAILY [facility] Last Admin: 05/13/17 18:43 Dose: 100 mg Metformin HCl (Glucophage) 500 mg PO BIDCC [facility] Last Admin: 05/13/17 17:44 Dose: Not Given Ondansetron HCl (Zofran Inj) 4 mg IVP Q6 PRN PRN Reason: Nausea/Vomiting Pantoprazole Sodium (Protonix Inj) 40 mg IVP DAILY [facility] Last Admin: 05/13/17 11:24 Dose: Not Given Rosuvastatin Calcium (Crestor) 5 mg PO HS [facility] Last Admin: 05/13/17 21:02 Dose: 5 mg - Labs Labs: 05/10/17 11:08 05/10/17 11:08 PT 11.3 SECONDS (9.7-12.2) 05/06/17 14:11 INR 1.0 05/06/17 14:11 APTT 35 SECONDS (21-34) H 05/06/17 14:11 - Constitutional Appears: No Acute Distress - Head Exam Head Exam: ATRAUMATIC, NORMAL INSPECTION, NORMOCEPHALIC - Eye Exam Eye Exam: EOMI, Normal appearance, PERRL Pupil Exam: NORMAL ACCOMODATION, PERRL - Respiratory Exam Respiratory Exam: Clear to Ausculation Bilateral, NORMAL BREATHING PATTERN - Cardiovascular Exam Cardiovascular Exam: REGULAR RHYTHM, +S1, +S2. absent: Murmur - GI/Abdominal Exam GI & Abdominal Exam: Soft, Normal Bowel Sounds. absent: Tenderness - Rectal Exam Rectal Exam: Deferred Assessment and Plan (1) Surgical wound infection Status: Acute
[2017-05-14] MEDS: (Novolog) Insulin Aspart, Recombinant 100 u/ml 10 ml vial SC SCH (07:30)
[2017-05-14 07:59] VITALS: BP 137/78; PULSE 69; RESP 20; TEMP 98; O2SAT 95
--- NOTE | 2017-05-14 23:29 | CP.PCM.DIS ---
Provider - Provider Date of Admission: 05/06/17 16:57 Attending physician: Balwinder Mitchell MD Time Spent in preparation of Discharge (in minutes): 45 Diagnosis - Discharge Diagnosis (1) Surgical wound infection Status: Acute Hospital Course - Lab Results Lab Results: Micro Results 05/11/17 13:44 Ankle - Right Gram Stain - Final 05/11/17 13:44 Ankle - Right Wound Culture - Final Methicillin Resistant S Aureus 05/09/17 15:02 Abscess - Leg-Right Gram Stain - Final 05/09/17 15:02 Abscess - Leg-Right Wound Culture - Final Methicillin Resistant S Aureus 05/06/17 13:40 Blood Blood Culture - Final NO GROWTH AFTER 5 DAYS 05/06/17 13:40 Blood Gram Stain - Final TEST NOT PERFORMED 05/06/17 14:10 Blood Blood Culture - Final NO GROWTH AFTER 5 DAYS 05/06/17 14:10 Blood Gram Stain - Final TEST NOT PERFORMED 05/06/17 17:04 Abscess - Leg-Right Gram Stain - Final 05/06/17 17:04 Abscess - Leg-Right Wound Culture - Final Escherichia Coli Methicillin Resistant S Aureus Enterococcus Faecalis Most Recent Lab Values WBC 4.4 K/uL (4.8-10.8) L 05/10/17 11:08 RBC 4.60 Mil/uL (3.80-5.20) 05/10/17 11:08 Hgb 12.0 g/dL (11.0-16.0) 05/10/17 11:08 Hct 37.2 % (34.0-47.0) 05/10/17 11:08 MCV 80.8 fL (81.0-99.0) L 05/10/17 11:08 MCH 26.1 pg (27.0-31.0) L 05/10/17 11:08 MCHC 32.3 g/dL (33.0-37.0) L 05/10/17 11:08 RDW 14.1 % (11.5-14.5) 05/10/17 11:08 Plt Count 191 K/uL (130-400) 05/10/17 11:08 MPV 8.4 fL (7.2-11.7) 05/10/17 11:08 Neut % (Auto) 69.8 % (50.0-75.0) 05/10/17 11:08 Lymph % (Auto) 20.2 % (20.0-40.0) 05/10/17 11:08 [place] % (Auto) 4.9 % (0.0-10.0) 05/10/17 11:08 Eos % (Auto) 4.3 % (0.0-4.0) H 05/10/17 11:08 Baso % (Auto) 0.8 % (0.0-2.0) 05/10/17 11:08 Neut # 3.0 K/uL (1.8-7.0) 05/10/17 11:08 Lymph # 0.9 K/uL (1.0-4.3) L 05/10/17 11:08 [place] # 0.2 K/uL (0.0-0.8) 05/10/17 11:08 Eos # 0.2 K/uL (0.0-0.7) 05/10/17 11:08 Baso # 0.0 K/uL (0.0-0.2) 05/10/17 11:08 PT 11.3 SECONDS (9.7-12.2) 05/06/17 14:11 INR 1.0 05/06/17 14:11 APTT 35 SECONDS (21-34) H 05/06/17 14:11 Sodium 135 mmol/L (132-148) 05/10/17 11:08 Potassium 4.0 mmol/L (3.6-5.2) 05/10/17 11:08 Chloride 100 mmol/L (98-107) 05/10/17 11:08 Carbon Dioxide 28 mmol/L (22-30) 05/10/17 11:08 Anion Gap 11 (10-20) 05/10/17 11:08 BUN 11 mg/dL (7-17) 05/10/17 11:08 Creatinine 0.9 mg/dL (0.7-1.2) 05/10/17 11:08 Est GFR ( Amer) > 60 05/10/17 11:08 Est GFR (Non-Af Amer) > 60 05/10/17 11:08 POC Glucose (mg/dL) 91 mg/dL (65-110) 05/14/17 11:28 Random Glucose 275 mg/dL (65-105) H 05/10/17 11:08 Calcium 8.4 mg/dl (8.6-10.4) L 05/10/17 11:08 Total Bilirubin 0.6 mg/dL (0.2-1.3) 05/10/17 11:08 AST 117 U/L (14-36) H D 05/10/17 11:08 ALT 104 U/L (9-52) H D 05/10/17 11:08 Alkaline Phosphatase 103 U/L (38-126) 05/10/17 11:08 Troponin I < 0.0120 ng/mL (0.00-0.120) 05/06/17 14:11 Total Protein 6.8 g/dL (6.3-8.3) 05/10/17 11:08 Albumin 3.7 g/dL (3.5-5.0) 05/10/17 11:08 Globulin 3.1 gm/dL (2.2-3.9) 05/10/17 11:08 Albumin/Globulin Ratio 1.2 (1.0-2.1) 05/10/17 11:08 Beta HCG, Quant < 2.39 mIU/ML 05/09/17 07:15 Urine Color Straw (YELLOW) 05/06/17 14:11 Urine Clarity Clear (Clear) 05/06/17 14:11 Urine pH 5.0 (5.0-8.0) 05/06/17 14:11 Ur Specific [place] 1.012 (1.003-1.030) 05/06/17 14:11 Urine Protein Negative mg/dL (NEGATIVE) 05/06/17 14:11 Urine Glucose (UA) 2+ mg/dL (Normal) H 05/06/17 14:11 Urine Ketones Negative mg/dL (NEGATIVE) 05/06/17 14:11 Urine Blood Negative (NEGATIVE) 05/06/17 14:11 Urine Nitrate Negative (NEGATIVE) 05/06/17 14:11 Urine Bilirubin Negative (NEGATIVE) 05/06/17 14:11 Urine Urobilinogen Normal mg/dL (0.2-1.0) 05/06/17 14:11 Ur Leukocyte Esterase Neg [place]ilyn/uL (Negative) 05/06/17 14:11 Urine WBC (Auto) 2 /hpf (0-5) 05/06/17 14:11 Urine RBC (Auto) < 1 /hpf (0-3) 05/06/17 14:11 Ur Squamous Epith Cells 4 /hpf (0-5) 05/06/17 14:11 Urine Bacteria Rare (<OCC) 05/06/17 14:11 Vancomycin Trough 11.2 ug/mL (5.0-10.0) H 05/13/17 04:27 Random Vancomycin 12.99 ug/mL 05/09/17 07:15 - Hospital Course Hospital Course: Pt is feeling better, is for discharge today, she is s/p OR , feeling better, B.P is controlled Discharge Exam - Head Exam Head Exam: ATRAUMATIC, NORMAL INSPECTION, NORMOCEPHALIC - Eye Exam Eye Exam: EOMI, Normal appearance, PERRL Pupil Exam: NORMAL ACCOMODATION, PERRL - Respiratory Exam Respiratory Exam: Clear to PA & Lateral, NORMAL BREATHING PATTERN - Cardiovascular Exam Cardiovascular Exam: REGULAR RHYTHM, +S1, +S2 - GI/Abdominal Exam GI & Abdominal Exam: Normal Bowel Sounds Discharge Plan - Discharge Medications Prescriptions: Sulfamethoxazole/Trimethoprim [Bactrim DS 800 mg-160 mg] 1 tab PO BID #20 tab - Follow Up Plan Condition: GOOD Disposition: HOME/ ROUTINE Instructions: Sulfamethoxazole/Trimethoprim (By mouth), Vein Stripping (DC), Surgical Site Infections (DC), Surgical Site Infections (GEN), Wound Healing and Your Diet (DC), Wound Healing and Your Diet (GEN) Additional Instructions: FOLLOW UP WITH DR MITCHELL ON Tuesday . PER DR MITCHELL HE WILL CHANGE DRESSING ON Tuesday.SEEK EMERGENCY TREATMENT IF FEVER DEVELOPS AND SEVERE PAIN NOT RELIEVE BY PAIN MEDICATION. Referrals: Trenton Alvarenga MD [Staff Provider] - Stevie Finch MD [Staff Provider] - Balwinder Mitchell MD [Staff Provider] -
--- NOTE | 2017-05-16 07:46 | OP ---
PROCEDURE DATE: 05/13/2017 PREOPERATIVE DIAGNOSIS: Methicillin-resistant Staphylococcus aureus infection of the right leg. POSTOPERATIVE DIAGNOSIS: Methicillin-resistant Staphylococcus aureus infection of the right leg. PROCEDURE PERFORMED: Debridement of infected ulcer of the right leg with partial closure and placement of Dermagraft. SURGEON: Balwinder Haddad MD. ANESTHESIA: General. ESTIMATED BLOOD LOSS: 20 mL. POSTOPERATIVE CONDITION: Stable. 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 She has undergone multiple debridements. She is now undergoing placement of a Dermagraft after adequate healing. DESCRIPTION OF PROCEDURE: The patient was taken to the operating room. General anesthesia was administered. The right leg was prepped and draped. The wound was aggressively debrided once again. Bleeding was controlled using the Bovie and exposed blood vessel was repaired and partial flaps were raised at the periphery. A peripheral closure was performed. The central portion of the wound was left open. A Dermagraft was fashioned and placed over the central portion of the wound and held in place with skin mamta. The patient tolerated the procedure well and returned to the recovery room in stable condition. Balwinder Haddad MD
--- NOTE | 2017-05-16 13:18 | PQF DEBRID ---
This form is a permanent part of the medical record To Balwinder Haddad MD Patient was admitted with post op wound infection, Please clarify if DEBRIDEMENT WAS EXCISIONAL OR NON EXCISIONAL on the following Procedure Dates --- 05/09/17 ; 05/11/17 ; 05/13/17 Please document the Indicators BELOW. Thank you, Clarification of your documentation is requested to better reflect the severity of illness and intensity of treatment of your patient. Indicators present [] Documentation of wound care / debridement [] Technique: [] [] Instrument used:[] --- [] Nature of Tissue Removed:[] [] Appearance of Wound:[] [] Size of Wound: [] [] Depth of Debridement: [] [] Other: [] Location in the medical record that reflects the above clinical findings: [] Other Treatment Provided: [] PHYSICIAN'S RESPONSE Based on your medical judgment, can you further clarify the precise NATURE, DEPTH, EXTENT and / or METHODS of wound debridement utilized in this case: [] EXCISIONAL debridement use of a scalpel / blade to cut away tissue Depth (subcutaneous, fascia, muscle, soft tissue and bone) [] Size of Wound [] NON-EXCISIONAL debridement chemical, scrubbing, trimming with a scissor/ versajet [] Other, please indicate: [] [] If unable to determine, please check the box, sign and date. In responding to this query, please exercise your independent professional judgment. The fact that a question is asked does not imply that any particular answer is desired or expected. Thank you for your clarification on this documentation. If you have any questions please call:[ ] * Thank you, [Amara Lopez, [facility] ] digester capper SREE
== END 2017-05-14 14:32 | disposition home or self-care (01) | DRG 899 ==
LOC: C.ER 12:27 → C.9E 13:37 → OBSVTOIN 16:57 → C.5S 18:31
PROVIDERS: ADMIT Surgery; ATTEND Surgery
PROC: 0HXKXZZ Transfer Right Lower Leg Skin, External Approach (ICD-10-PCS; 2017-05-09)
PROC: 0HBKXZZ Excision of Right Lower Leg Skin, External Approach (ICD-10-PCS; principal; 2017-05-09 18:45)
PROC: 06QY0ZZ Repair Lower Vein, Open Approach (ICD-10-PCS; 2017-05-09 18:45)
PROC: 0HBKXZZ Excision of Right Lower Leg Skin, External Approach (ICD-10-PCS; 2017-05-11)
PROC: 06QY0ZZ Repair Lower Vein, Open Approach (ICD-10-PCS; 2017-05-11)
PROC: 0HXKXZZ Transfer Right Lower Leg Skin, External Approach (ICD-10-PCS; 2017-05-11)
PROC: 0HBKXZZ Excision of Right Lower Leg Skin, External Approach (ICD-10-PCS; 2017-05-13)
PROC: 06QY0ZZ Repair Lower Vein, Open Approach (ICD-10-PCS; 2017-05-13)
PROC: 0HRKXK3 Replacement of Right Lower Leg Skin with Nonautologous Tissue Substitute, Full Thickness, External Approach (ICD-10-PCS; 2017-05-13)
DX: T81.4XXA Infection following a procedure, initial encounter (principal); E11.622 Type 2 diabetes mellitus with other skin ulcer; L02.415 Cutaneous abscess of right lower limb; L97.819 Non-pressure chronic ulcer of other part of right lower leg with unspecified severity; I83.018 Varicose veins of right lower extremity with ulcer other part of lower leg; I10 Essential (primary) hypertension; E78.00 Pure hypercholesterolemia, unspecified; Z95.5 Presence of coronary angioplasty implant and graft; Y83.8 Other surgical procedures as the cause of abnormal reaction of the patient, or of later complication, without mention of misadventure at the time of the procedure; B95.62 Methicillin resistant Staphylococcus aureus infection as the cause of diseases classified elsewhere; B96.20 Unspecified Escherichia coli [E. coli] as the cause of diseases classified elsewhere